=== PATIENT | female | born 1985 | race Caucasian/White ===

== ENCOUNTER → 2016-10-16 | Outpatient (CLI) | payer OTHER ==
[~2016-10-16] MED LIST: AZIT250T PO; CYCL10TA6 PO; DEXT1CAP9 PO; DIPH25CA65 PO; IBUP-103 PO; IBUP-1050 PO; IBUP-1428 PO; ONDA4TAB46 PO; OXYC-57 PO; PHEN1CAP5 PO; PRED50TA PO; PRVHFAIN INH; SULF800T23 PO; TPRSR/50 PO
[2016-10-16 17:44] LABS: BASO % 0.3 %; BASO ABS # 0.02 K/uL (0-0.2); COMPLETE YES; EOS % 4.6 %; HEMATOCRIT 43.8 % (37-47); IG% 0.1 %; LYMPH % 42.3 %; LYMPH ABS # 3.29 K/uL (1.2-3.4); MEAN CELL VOLUME 90.9 fL (80-100); MEAN CORPUSCULAR HEMOGLOBIN 30.5 pg (25-34); MEAN CORPUSCULAR HGB CONC 33.6 g/dl (32-36); MEAN PLATELET VOLUME 11.8 fL (7.4-10.4); MONO % 7.1 %; NEUT % 45.6 %; PLATELET COUNT 238 K/uL (130-400); RED BLOOD COUNT 4.82 M/uL (4.2-5.4); WHITE BLOOD COUNT 7.77 K/uL (4.8-10.8)
[2016-10-16 17:52] LABS: ALT/SGPT 26 U/L (12-78); AST/SGOT 14 U/L (15-37); BLOOD UREA NITROGEN 5 mg/dl (7-18); BUN/CREATININE RATIO 9.5 (10-20); CALCIUM 8.6 mg/dl (8.5-10.1); CARBON DIOXIDE 28 mmol/L (21-32); CHLORIDE 103 mmol/L (98-107); CREATININE 0.57 mg/dl (0.60-1.20); GLUCOSE 88 mg/dl (70-99); POTASSIUM 4.2 mmol/L (3.5-5.1); SODIUM 138 mmol/L (136-145)
[2016-10-16 18:03] LABS: ALB/GLOB RATIO 0.9 (0.9-2); ALKALINE PHOSPHATASE 123 U/L (45-117)
== END | disposition home or self-care (01) ==
LOC: C.LABBFT 14:45
PROVIDERS: ATTEND Internal Medicine
DX: J01.90 Acute sinusitis, unspecified (principal); I10 Essential (primary) hypertension

== ENCOUNTER 2016-10-21 16:21 | Emergency (ER) | payer OTHER ==
[~2016-10-21] VITALS: Ht 149.9 cm; Wt 86.0 kg
[~2016-10-21 16:21] MED LIST changes: -AZIT250T PO; -CYCL10TA6 PO; -DEXT1CAP9 PO; -DIPH25CA65 PO; -IBUP-103 PO; -IBUP-1428 PO; -OXYC-57 PO; -PRED50TA PO; -PRVHFAIN INH; -SULF800T23 PO; -TPRSR/50 PO
[2016-10-21 16:22] VITALS: Ht 149.9 cm; Wt 86.0 kg
[2016-10-21] MEDS ORDERED: SODIUM CHLORIDE 0.9% 1000ML 1,000 ML IV STA (16:32)
--- NOTE | 2016-10-21 16:37 | EMERGENCY ROOM VISIT NOTE ---
History Report prepared by Kyle: Elizabet Darling Under the Supervision of: Dr. Matias Lopez M.D. 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 The patient currently rates the pain as a 5/10 in severity. The patient states that with her abdominal pain she has had some light vaginal bleeding as well as the urge to urinate more frequently recently. She states that last night the pain intensified but it was slightly resolved when she was able to pass some gas but that there was still pain. She states that her menstrual period is late and hat she has a chance of but with a home test, tested negative for . The patient states that she has had two children in the past but that she has also has a history of a miscarriage. 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 Review of Systems See HPI for pertinent positives & negatives. A total of 10 systems reviewed and were otherwise negative. Past Medical & Surgical Medical Problems: (1) 37weeks 3 days (2) Active labor (3) Irregular contractions (4) Panic attack Surgical Problems: (1) S/P section Family History Cancer Diabetes mellitus Hypertension Seizures Social History Smoking Status: Current Every Day Smoker Alcohol Use: none Marital Status: Housing Status: lives with family Occupation Status: employed Current/Historical Medications Scheduled Ibuprofen (Advil), 200-600 MG PO Q4H Metoprolol Succinate (Metoprolol Succinate ER), 50 MG PO QAM Scheduled PRN Oxycodone/Acetaminophen 5MG/325MG (Percocet 5MG/325MG), 1-2 TAB PO Q4H PRN for Pain Allergies Coded Allergies: No Known Drug Allergy (Verified Allergy, Unknown, `, 06/25/16) Uncoded Allergies: metal (Adverse Reaction, Intermediate, RASH, 10/23/15) had skin irritation with shannon & also with some jewelry that contains nickel Physical Exam Vital Signs Date Time Temp Pulse Resp B/P Pulse Ox O2 Delivery O2 Flow Rate FiO2 10/21/16 18:52 37.3 84 16 142/99 99 10/21/16 18:50 84 16 142/99 99 Room Air 10/21/16 16:22 37.3 94 16 163/104 99 Room Air Physical Exam GENERAL: Patient is a healthy-appearing well-nourished HEAD: Normocephalic atraumatic EYES: Ocular movements intact pupils equal and react to light OROPHARYNX mucous membranes are moist no exudates present no erythema or edema present NECK: Supple no nuchal rigidity CHEST: Good equal expansion LUNGS: Clear and equal to auscultation CARDIAC: Normal S1 and S2 ABDOMEN: Soft nontender no guarding BACK: No CVA tenderness EXTREMITIES: No pain upon palpation normal muscle strength in all groups no clubbing cyanosis or edema NEURO: Patient is following commands is answering questions appropriately. Alert and oriented x3 Cranial Nerves 2-12 grossly intact Medical Decision & Procedures ER Provider Diagnostic Interpretation: US results as stated below per my review and radiologist interpretation: ULTRASOUND OF THE PELVIS CLINICAL HISTORY: Pelvic pain. COMPARISON STUDY: No priors. TECHNIQUE: Real-time, grayscale, and color flow sonography of the pelvis is performed both transabdominally and endovaginally. Images are reviewed in the transverse and longitudinal planes. FINDINGS: Uterus: The uterus is normal in size and echotexture, measuring 8.9 x 4.9 x 4.9 cm. Tiny nabothian cysts are noted in the cervix. Endometrium: The endometrium is normal in appearance, and the endometrial stripe is mildly thickened measuring up to 1.3 cm. Ovaries: The ovaries are normal in size and morphology. The right ovary measures 4.0 x 2.0 x 2.9 cm and the left ovary measures 3.8 x 2.8 x 2.6 cm. A 2.8 cm complex/hemorrhagic follicle is noted in the left ovary. Additional smaller follicles are noted in the right ovary. Normal Doppler waveforms are shown within both ovaries. Pelvis: There is trace and likely physiologic free fluid in the cul-de-sac. No concerning adnexal lesion is seen. IMPRESSION: 1. No acute sonographic abnormality is identified in the pelvis. 2. There is a 2.8 cm complex/hemorrhagic follicle identified in the left ovary. 3. The endometrial stripe is mildly thickened measuring up to 1.3 cm. This may be related to the patient's cycle. Clinical correlation will be required. 4. There is trace and likely physiologic fluid in the cul-de-sac. Electronically signed by: Marshall Luciano M.D. 10/21/2016 6:19 PM Dictated Date/Time: 10/21/2016 6:16 PM Laboratory Results 10/21/16 16:55 Red Blood Count 4.89, Mean Corpuscular Volume 88.1, Mean Corpuscular Hemoglobin 30.3, Mean Corpuscular Hemoglobin Concent 34.3, Mean Platelet Volume 10.8, Neutrophils (%) (Auto) 56.4, Lymphocytes (%) (Auto) 31.7, Monocytes (%) (Auto) 7.6, Eosinophils (%) (Auto) 3.8, Basophils (%) (Auto) 0.3, Neutrophils # (Auto) 6.62, Lymphocytes # (Auto) 3.71, Monocytes # (Auto) 0.89, Eosinophils # (Auto) 0.44, Basophils # (Auto) 0.04 10/21/16 16:55 Test 10/21/16 16:55 White Blood Count 11.72 K/uL (4.8-10.8) Red Blood Count 4.89 M/uL (4.2-5.4) Hemoglobin 14.8 g/dL (12.0-16.0) Hematocrit 43.1 % (37-47) Mean Corpuscular Volume 88.1 fL (80-100) Mean Corpuscular Hemoglobin 30.3 pg (25-34) Mean Corpuscular Hemoglobin Concent 34.3 g/dl (32-36) Platelet Count 243 K/uL (130-400) Mean Platelet Volume 10.8 fL (7.4-10.4) Neutrophils (%) (Auto) 56.4 % Lymphocytes (%) (Auto) 31.7 % Monocytes (%) (Auto) 7.6 % Eosinophils (%) (Auto) 3.8 % Basophils (%) (Auto) 0.3 % Neutrophils # (Auto) 6.62 K/uL (1.4-6.5) Lymphocytes # (Auto) 3.71 K/uL (1.2-3.4) Monocytes # (Auto) 0.89 K/uL (0.11-0.59) Eosinophils # (Auto) 0.44 K/uL (0-0.5) Basophils # (Auto) 0.04 K/uL (0-0.2) RDW Standard Deviation 43.4 fL (36.4-46.3) RDW Coefficient of Variation 13.5 % (11.5-14.5) Immature Granulocyte % (Auto) 0.2 % Immature Granulocyte # (Auto) 0.02 K/uL (0.00-0.02) Red Blood Cell Morphology Unremarkable Urine Color YELLOW Urine Appearance CLEAR (CLEAR) Urine pH 8.0 (4.5-7.5) Urine Specific [place] 1.013 (1.000-1.030) Urine Protein NEG (NEG) Urine Glucose (UA) NEG (NEG) Urine Ketones NEG (NEG) Urine Occult Blood NEG (NEG) Urine Nitrite NEG (NEG) Urine Bilirubin NEG (NEG) Urine Urobilinogen NEG (NEG) Urine Leukocyte Esterase NEG (NEG) Urine Test NEG (NEG) Anion Gap 6.0 mmol/L (3-11) Est Creatinine Clear Calc Drug Dose 124.4 ml/min Estimated GFR () 139.5 Estimated GFR (Non- 120.4 BUN/Creatinine Ratio 10.0 (10-20) Calcium Level 9.2 mg/dl (8.5-10.1) Total Bilirubin 0.2 mg/dl (0.2-1) Direct Bilirubin < 0.1 mg/dl (0-0.2) Aspartate Amino Transf (AST/SGOT) 16 U/L (15-37) Alanine Aminotransferase (ALT/SGPT) 26 U/L (12-78) Alkaline Phosphatase 128 U/L (45-117) Total Protein 7.8 gm/dl (6.4-8.2) Albumin 3.8 gm/dl (3.4-5.0) Lipase 148 U/L (73-393) Human Chorionic Gonadotropin, Qual NEG (NEG) Human Chorionic Gonadotropin, Quant < 1 mIU/mL Labs reviewed by ED physician. Medications Administered Medications (Trade) Dose Ordered Sig/Eulalia Route Start Time Stop Time Status Last Admin Dose Admin Sodium Chloride (Nss 1000ml) 1,000 ml @ 999 mls/hr Q1H1M STAT IV 10/21/16 16:32 10/21/16 17:32 DC 10/21/16 17:05 999 MLS/HR Oxycodone/ Acetaminophen (Percocet 5/ 325MG Home Pack) 1 homepack UD ONCE PO 10/21/16 18:45 10/21/16 18:46 DC 10/21/16 18:41 1 HOMEPACK ED Course 1630: Past medical records reviewed. The patient was evaluated in room B6. A complete history and physical examination was performed. 163: Ordered Sodium Chloride 1,000 ml @ 999 mls/hr IV 1836: Upon reexamination the patient is resting comfortably. I discussed results and treatment plan with the patient. She verbalizes agreement and understanding. The patient is ready for discharge. 1845: Ordered Oxycodone/ Acetaminophen 1 homepack PO. Medical Decision Differential diagnosis: Etiologies such as appendicitis, diverticulitis, PUD, biliary pathology, UTI, pancreatitis, obstruction, mesenteric ischemia, aortic pathology, infections, inflammatory bowel disease, renal colic, as well as others were entertained. This is a 31-year-old female who presents emergency department complaining of right lower quadrant pelvic pain that started abruptly last evening. The patient's story is consistent with ovarian cyst. There is an ovarian cyst present on the patient's ultrasound along with some free pelvic fluid. I did do believe the patient suffered from an ovarian cyst rupture. I will note her hemoglobin is stable and she does not have an elevation in her white blood count that would be consistent with acute appendicitis. In addition the patient is only tender in the right lower pelvic area. Serial abdominal examinations were performed on the patient emergency department and at no time did the patient exhibit right lower quadrant abdominal tenderness. I do believe the patient can be safely discharged home for follow-up with OB. Using shared medical decision-making with the patient we felt that the dangers of radiation from CAT scan were unwarranted. Patient was in agreement with the treatment plan. she was given Percocet for home use. Impression Primary Impression: Pelvic pain Additional Impression: Ovarian cyst Scribe Attestation The scribe's documentation has been prepared under my direction and personally reviewed by me in its entirety. I confirm that the note above accurately reflects all work, treatment, procedures, and medical decision making performed by me. Departure Information Dispostion Home / Self-Care Prescriptions Oxycodone/Acetaminophen 5MG/325MG (PERCOCET 5MG/325MG) Tab 1-2 TAB PO Q4H Y for Pain, #14 TAB Prov: Matias Lopez MD 10/21/16 Referrals Alejandro Strong M.D. (PCP) Forms HOME CARE DOCUMENTATION FORM, IMPORTANT VISIT INFORMATION Patient Instructions My [facility] Additional Instructions You received narcotic or benzodiazepene medication while in the emergency room today. Do not drive, operate heavy machinery, or drink alcohol under the influence of this medication. Take 600 mg Ibuprofen every 6 hours Take Percocet for breakthrough pain You have been examined and treated today on an emergency basis only. This is not a substitute for, or an effort to provide, complete comprehensive medical care. It is impossible to recognize and treat all injuries or illnesses in a single emergency department visit. It is therefore important that you follow up closely with Dr Strong. Call as soon as possible for an appointment. Thank you for your time and consideration. I look forward to speaking with you again soon. Please don't hesitate to call us if you have any questions. Problem Qualifiers Additional Impression: Ovarian cyst Laterality: left Qualified Codes: N83.202 - Unspecified ovarian cyst, left side
[2016-10-21 17:09] LABS: HEMATOCRIT 43.1 % (37-47); MEAN CELL VOLUME 88.1 fL (80-100); MEAN CORPUSCULAR HEMOGLOBIN 30.3 pg (25-34); MEAN CORPUSCULAR HGB CONC 34.3 g/dl (32-36); MEAN PLATELET VOLUME 10.8 fL (7.4-10.4); PLATELET COUNT 243 K/uL (130-400); RED BLOOD COUNT 4.89 M/uL (4.2-5.4); WHITE BLOOD COUNT 11.72 K/uL (4.8-10.8)
[2016-10-21 17:11] LABS: URINE APPEARANCE CLEAR (CLEAR); URINE BILIRUBIN NEG (NEG); URINE COLOR YELLOW; URINE NITRITE NEG (NEG); URINE SPECIFIC GRAVITY 1.013 (1.000-1.030); UROBILINOGEN NEG (NEG)
[2016-10-21 17:13] LABS: MANUAL MICROSCOPIC REQUIRED? NO; REVIEW REQ? NO
[2016-10-21 17:28] LABS: ALT/SGPT 26 U/L (12-78); AST/SGOT 16 U/L (15-37); BLOOD UREA NITROGEN 6 mg/dl (7-18); CALCIUM 9.2 mg/dl (8.5-10.1); CARBON DIOXIDE 30 mmol/L (21-32); CHLORIDE 106 mmol/L (98-107); CREATININE 0.63 mg/dl (0.60-1.20); GLUCOSE 127 mg/dl (70-99); SODIUM 142 mmol/L (136-145)
[2016-10-21 17:29] LABS: PREG INTERNAL NEGATIVE QC NEG CLEAR BACKGROUND; PREG INTERNAL POSITIVE QC POS CONTROL LINE
[2016-10-21 17:30] LABS: ALKALINE PHOSPHATASE 128 U/L (45-117)
[2016-10-21 17:51] LABS: BASO % 0.3 %; BASO ABS # 0.04 K/uL (0-0.2); COMPLETE YES; EOS % 3.8 %; IG% 0.2 %; LYMPH % 31.7 %; LYMPH ABS # 3.71 K/uL (1.2-3.4); MONO % 7.6 %; NEUT % 56.4 %
--- NOTE | 2016-10-21 18:20 | DIAGNOSTIC IMAGING REPORT ---
ULTRASOUND OF THE PELVIS CLINICAL HISTORY: Pelvic pain. COMPARISON STUDY: No priors. TECHNIQUE: Real-time, grayscale, and color flow sonography of the pelvis is performed both transabdominally and endovaginally. Images are reviewed in the transverse and longitudinal planes. FINDINGS: Uterus: The uterus is normal in size and echotexture, measuring 8.9 x 4.9 x 4.9 cm. Tiny nabothian cysts are noted in the cervix. Endometrium: The endometrium is normal in appearance, and the endometrial stripe is mildly thickened measuring up to 1.3 cm. Ovaries: The ovaries are normal in size and morphology. The right ovary measures 4.0 x 2.0 x 2.9 cm and the left ovary measures 3.8 x 2.8 x 2.6 cm. A 2.8 cm complex/hemorrhagic follicle is noted in the left ovary. Additional smaller follicles are noted in the right ovary. Normal Doppler waveforms are shown within both ovaries. Pelvis: There is trace and likely physiologic free fluid in the cul-de-sac. No concerning adnexal lesion is seen. IMPRESSION: 1. No acute sonographic abnormality is identified in the pelvis. 2. There is a 2.8 cm complex/hemorrhagic follicle identified in the left ovary. 3. The endometrial stripe is mildly thickened measuring up to 1.3 cm. This may be related to the patient's cycle. Clinical correlation will be required. 4. There is trace and likely physiologic fluid in the cul-de-sac. Electronically signed by: Marshall Luciano M.D. 10/21/2016 6:19 PM Dictated Date/Time: 10/21/2016 6:16 PM
[2016-10-21] MEDS ORDERED: OXYC-57 PO (18:34)
[2016-10-21] MEDS ORDERED: PERCOCET HOME PACK PO ONE (18:45)
[2016-10-21 18:52] VITALS: BP 142/99; PULSE 84; TEMP 37.3; O2SAT 99
[2017-01-06] MEDS ORDERED: TPRSR/50 PO (15:47)
== END 2016-10-21 18:53 | disposition home or self-care (01) ==
LOC: C.EDB 16:21
DX: R10.2 Pelvic and perineal pain (principal); N83.202 Unspecified ovarian cyst, left side; F17.200 Nicotine dependence, unspecified, uncomplicated; Z80.9 Family history of malignant neoplasm, unspecified; Z83.3 Family history of diabetes mellitus; Z82.49 Family history of ischemic heart disease and other diseases of the circulatory system; Z82.0 Family history of epilepsy and other diseases of the nervous system

== ENCOUNTER 2017-01-04 22:20 | Emergency (ER) | payer OTHER ==
[~2017-01-04] VITALS: Ht 149.9 cm; Wt 86.4 kg
[~2017-01-04 22:20] MED LIST changes: -ONDA4TAB46 PO; +OXYC-57 PO; -PHEN1CAP5 PO
[2017-01-04 22:23] VITALS: TEMP 36.8; Ht 149.9 cm; Wt 86.4 kg
[2017-01-04 23:00] LABS: URINE APPEARANCE CLEAR (CLEAR); URINE BILIRUBIN NEG (NEG); URINE COLOR YELLOW; URINE NITRITE NEG (NEG); URINE SPECIFIC GRAVITY 1.023 (1.000-1.030); UROBILINOGEN NEG (NEG); ZZUR CULT IF INDIC CLEAN CATCH NO
[2017-01-04 23:08] LABS: MANUAL MICROSCOPIC REQUIRED? NO; REVIEW REQ? NO
[2017-01-04 23:13] LABS: HEMATOCRIT 45.5 % (37-47); MEAN CELL VOLUME 91.7 fL (80-100); MEAN CORPUSCULAR HGB CONC 33.8 g/dl (32-36); MEAN PLATELET VOLUME 11.9 fL (7.4-10.4); PLATELET COUNT 248 K/uL (130-400); RED BLOOD COUNT 4.96 M/uL (4.2-5.4); WHITE BLOOD COUNT 12.96 K/uL (4.8-10.8)
[2017-01-04] MEDS ORDERED: OPTIRAY 320 IV PRN (23:30)
[2017-01-04 23:31] LABS: ALT/SGPT 27 U/L (12-78); AST/SGOT 18 U/L (15-37); BLOOD UREA NITROGEN 6 mg/dl (7-18); BUN/CREATININE RATIO 8.8 (10-20); CALCIUM 9.1 mg/dl (8.5-10.1); CARBON DIOXIDE 29 mmol/L (21-32); CHLORIDE 103 mmol/L (98-107); CREATININE 0.72 mg/dl (0.60-1.20); GLUCOSE 87 mg/dl (70-99); POTASSIUM 3.6 mmol/L (3.5-5.1); SODIUM 141 mmol/L (136-145)
[2017-01-04 23:34] LABS: ALKALINE PHOSPHATASE 137 U/L (45-117)
[2017-01-04 23:52] LABS: BASO % 0.3 %; BASO ABS # 0.04 K/uL (0-0.2); COMPLETE YES; EOS % 2.4 %; IG% 0.2 %; LYMPH % 44.8 %; LYMPH ABS # 5.81 K/uL (1.2-3.4); MONO % 4.6 %; NEUT % 47.7 %
[2017-01-05 00:58] VITALS: BP 133/77; PULSE 101; O2SAT 98
[2017-01-05] MEDS ORDERED: KETOROLAC TROMETHAMINE 30 MG/ML VIAL IV STA (01:02)
[2017-01-05] MEDS ORDERED: SULF800T23 PO (01:20)
--- NOTE | 2017-01-05 01:25 | EMERGENCY ROOM VISIT NOTE ---
History First contact with patient: 22:31 Chief Complaint: BACK PAIN Stated Complaint: BLADDER INFECTION, BAD LOWER BACK PAIN History of Present Illness The patient is a 31 year old female who presents to the Emergency Room with complaints of an approximate 2 day history of increased urinary frequency, backache, mild abdominal pain and pressure. She also reports mild nausea without vomiting. She reports that the pain is relatively constant. The patient believes that she may have a urinary tract infection. She has had urinary tract infections in the past. She also has a history of ovarian cysts, but does not feel that this pain is consistent with a cyst. She denies any prior history of abdominal surgeries. She denies any specific alleviating or aggravating factors for her discomfort. The patient reports that she did have some vaginal bleeding after intercourse 2 nights ago. Friend was not particularly painful. She denies . She rates her discomfort a 7 out of 10. Review of Systems HEENT: Denies dizziness, visual problems, hearing loss, tinnitus. Denies difficulty swallowing or oral lesions. PULMONARY: Denies cough, shortness of breath, sputum production or hemoptysis. CARDIOVASCULAR: Denies chest pain, palpitations, dyspnea on exertion, orthopnea or peripheral edema. GASTROINTESTINAL: Denies diarrhea, constipation, nausea, vomiting, or abdominal pain. GENITOURINARY: Denies dysuria, frequency, urgency or nocturia. NEUROLOGIC: Denies history of epilepsy, CVA, TIA or chronic headaches. MUSCULOSKELETAL: Denies history of joint tenderness/swelling. SKIN: Denies rashes or lesions. PSYCHIATRIC: Denies history of depression or mental illness. ENDOCRINE: Denies history of diabetes or thyroid disorders. Past Medical/Surgical History Medical Problems: (1) 37weeks 3 days (2) Active labor (3) Irregular contractions (4) Panic attack Surgical Problems: (1) S/P section Family History Cancer Diabetes mellitus Hypertension Seizures Social History Smoking Status: Current Every Day Smoker Alcohol Use: none Marital Status: Housing Status: lives with family Occupation Status: employed Current/Historical Medications Scheduled Metoprolol Succinate (Metoprolol Succinate ER), 50 MG PO QAM Sulfa/Trimethoprim (Bactrim Ds 800MG/160MG), 1 TAB PO BID Scheduled PRN Albuterol (Ventolin Hfa), 2 PUFFS INH UD PRN for SOB/Wheezing Allergies Coded Allergies: No Known Drug Allergy (Verified Allergy, Unknown, `, 06/25/16) Uncoded Allergies: metal (Adverse Reaction, Intermediate, RASH, 10/23/15) had skin irritation with shannon & also with some jewelry that contains nickel Physical Exam Vital Signs Date Time Temp Pulse Resp B/P (MAP) Pulse Ox O2 Delivery O2 Flow Rate FiO2 01/05/17 00:58 101 16 133/77 98 Room Air 01/05/17 00:00 88 18 163/110 97 Room Air 01/04/17 22:23 36.8 92 18 155/80 100 Room Air Physical Exam CONSTITUTIONAL: Obese female, alert and oriented X 3 with positive affect. Patient does not appear in any acute distress. HEENT: Normocephalic, atraumatic. Pupils equal, round and reactive. Ears and nares are clear. No scleral icterus or conjunctival injection/pallor. NECK: Full active range of motion without discomfort. No JVD or carotid bruits. RESPIRATORY: Clear to auscultation bilaterally with no wheezing, crackles, rhonchi or stridor. CARDIOVASCULAR: Regular rate and rhythm with no murmurs, rubs or gallops. GASTROINTESTINAL: Bowel sounds present in all quadrants. The patient has notable lower central abdominal tenderness to palpation. Negative Rovsing sign. Negative CVA tenderness. Negative McBurney's point tenderness. Negative psoas/obturator sign. Negative heel tap. No abdominal rigidity, guarding or rebound. No obvious hepatosplenomegaly. MUSCULOSKELETAL: Full range of motion of all joints without discomfort. Negative logroll. Negative straight leg raise. INTEGUMENTARY: No rash or other significant dermatologic conditions noted. HEMATOLOGIC: No ecchymosis or petechiae. NEUROLOGIC: No focal neurologic deficits noted. Medical Decision & Procedures ER Provider Diagnostic Interpretation: Pelvic and endovaginal ultrasound shows no evidence for ovarian torsion, adnexal mass or free fluid. The patient has a persistent left ovarian cyst or dominant follicle, measuring 2.7 x 2.4 x 2.7 cm. The endometrium measures 1.[address] of the abdomen and pelvis with IV contrast again shows a left ovarian 2.8 cm cyst/dominant follicle. The appendix appears normal. There is no evidence of acute inflammatory or obstructive process in the abdomen or pelvis to account for symptoms. Radiologist report is pending with the above reports per [employer]. Laboratory Results 01/04/17 22:55 Red Blood Count 4.96, Mean Corpuscular Volume 91.7, Mean Corpuscular Hemoglobin 31.0, Mean Corpuscular Hemoglobin Concent 33.8, Mean Platelet Volume 11.9, Neutrophils (%) (Auto) 47.7, Lymphocytes (%) (Auto) 44.8, Monocytes (%) (Auto) 4.6, Eosinophils (%) (Auto) 2.4, Basophils (%) (Auto) 0.3, Neutrophils # (Auto) 6.17, Lymphocytes # (Auto) 5.81, Monocytes # (Auto) 0.60, Eosinophils # (Auto) 0.31, Basophils # (Auto) 0.04 01/04/17 22:55 Test 01/04/17 22:46 01/04/17 22:55 Urine Color YELLOW Urine Appearance CLEAR (CLEAR) Urine pH 6.0 (4.5-7.5) Urine Specific [place] 1.023 (1.000-1.030) Urine Protein NEG (NEG) Urine Glucose (UA) NEG (NEG) Urine Ketones NEG (NEG) Urine Occult Blood NEG (NEG) Urine Nitrite NEG (NEG) Urine Bilirubin NEG (NEG) Urine Urobilinogen NEG (NEG) Urine Leukocyte Esterase NEG (NEG) Urine Test NEG (NEG) White Blood Count 12.96 K/uL (4.8-10.8) Red Blood Count 4.96 M/uL (4.2-5.4) Hemoglobin 15.4 g/dL (12.0-16.0) Hematocrit 45.5 % (37-47) Mean Corpuscular Volume 91.7 fL (80-100) Mean Corpuscular Hemoglobin 31.0 pg (25-34) Mean Corpuscular Hemoglobin Concent 33.8 g/dl (32-36) Platelet Count 248 K/uL (130-400) Mean Platelet Volume 11.9 fL (7.4-10.4) Neutrophils (%) (Auto) 47.7 % Lymphocytes (%) (Auto) 44.8 % Monocytes (%) (Auto) 4.6 % Eosinophils (%) (Auto) 2.4 % Basophils (%) (Auto) 0.3 % Neutrophils # (Auto) 6.17 K/uL (1.4-6.5) Lymphocytes # (Auto) 5.81 K/uL (1.2-3.4) Monocytes # (Auto) 0.60 K/uL (0.11-0.59) Eosinophils # (Auto) 0.31 K/uL (0-0.5) Basophils # (Auto) 0.04 K/uL (0-0.2) RDW Standard Deviation 45.9 fL (36.4-46.3) RDW Coefficient of Variation 13.7 % (11.5-14.5) Immature Granulocyte % (Auto) 0.2 % Immature Granulocyte # (Auto) 0.03 K/uL (0.00-0.02) Anion Gap 9.0 mmol/L (3-11) Est Creatinine Clear Calc Drug Dose 109.1 ml/min Estimated GFR () 130.2 Estimated GFR (Non- 112.4 BUN/Creatinine Ratio 8.8 (10-20) Calcium Level 9.1 mg/dl (8.5-10.1) Total Bilirubin 0.3 mg/dl (0.2-1) Direct Bilirubin < 0.1 mg/dl (0-0.2) Aspartate Amino Transf (AST/SGOT) 18 U/L (15-37) Alanine Aminotransferase (ALT/SGPT) 27 U/L (12-78) Alkaline Phosphatase 137 U/L (45-117) Total Creatine Kinase 133 U/L (26-192) Total Protein 8.7 gm/dl (6.4-8.2) Albumin 4.6 gm/dl (3.4-5.0) Lipase 136 U/L (73-393) The above labs were reviewed. Urine dip showed positive nitrites and proteinuria without evidence for leukocyte esterase or hematuria. Urinalysis however was completely normal. The patient has an elevated white count and bandemia without left shift. Electrolytes are normal. Alkaline phosphatase is mildly elevated with normal LFTs and lipase. Medications Administered Medications (Trade) Dose Ordered Sig/Eulalia Route Start Time Stop Time Status Last Admin Dose Admin Ketorolac Tromethamine (Toradol Inj) 30 mg NOW STAT IV 01/05/17 01:02 01/05/17 01:04 DC 01/05/17 01:09 30 MG ED Course Patient history and physical exam were performed. Nurse's notes were reviewed. Vital signs were reviewed and grossly normal. The patient is afebrile. She does not appear in any acute distress on exam. IV access was established, and labs were drawn. The patient refused any analgesics or antiemetics. Review of labs shows a urine dip with positive nitrites and proteinuria. However, the patient had no hematuria or leukocyte esterase. Urine was also negative. Further lab review shows normal LFTs and lipase except for mildly elevated alkaline phosphatase. CPK, electrolytes and creatinine are normal. Pelvic and transvaginal ultrasound shows a left ovarian cyst without evidence for torsion, adnexal mass or free fluid. It is relatively unchanged from the patient's recent ultrasound dated 10/21/16. CT of the abdomen and pelvis with IV contrast was also normal with the noted left ovarian 2.8 cm cyst/dominant follicle. The patient did receive Toradol 30 mg IVP after returning from CT. The patient was encouraged to follow-up with her COLLEGE COACH for further reevaluation and management. She was encouraged to alternate ibuprofen and Tylenol for baseline pain relief. She refused any prescription analgesics. Because she does have symptoms of UTI, I did elect to treat her with Bactrim DS twice a day 5 days. She was instructed to return to the emergency department for any significant worsening pain, vomiting, vaginal/rectal bleeding, fever or other concerning symptoms. The patient was happy with plan of care, and rated her discomfort a 3 out of 10 at the time of discharge. Medical Decision Patient presents to the emergency Department with primary complaint of increased urinary frequency, lower abdominal pain and back pain. Her urinalysis is not suggestive of UTI, and has no hematuria that is typical for a ureteral calculus. Additional lab work is not suggestive of hepatitis, cholecystitis or pancreatitis. Ultrasound and CT that show a left ovarian cyst that will need followed by her COLLEGE COACH. Ultrasound is not suggestive of ovarian torsion. Interstitial cystitis is certainly a possibility, but I suspect that the patient's discomfort is likely from the ovarian cyst. CT is not suggestive of diverticulitis, appendicitis or obstruction. Impression Primary Impression: Left ovarian cyst Additional Impressions: Lower abdominal pain Symptoms of urinary tract infection Departure Information Prescriptions Sulfa/Trimethoprim (Bactrim Ds 800MG/160MG) Tab 1 TAB PO BID for 4 Days, #8 TAB Prov: Chong Fraire PA 01/05/17 Referrals Alejandro Strong M.D. (PCP) Patient Instructions My [facility] Problem Qualifiers
[2017-01-05] MEDS ORDERED: SEPTRA DS HOME PACK 1 EA VIAL PO ONE (01:30)
--- NOTE | 2017-01-05 06:57 | DIAGNOSTIC IMAGING REPORT ---
PELVIC ULTRASOUND CLINICAL HISTORY: Lower abdominal and back pain. COMPARISON STUDY: Pelvic ultrasound October 21, 2016. TECHNIQUE: Transabdominal and transvaginal sonography of the pelvis was performed. FINDINGS: The uterus measures 8.4 x 4.3 x 4.7 cm. Endometrium measures 1.2 cm in thickness. The right ovary is normal, measuring 2.8 x 1.5 x 2.7 cm and the left ovary measures 3.8 x 3 x 3.8 cm. There is a 2.7 cm cystic lesion within the left ovary. There is no free fluid. Color flow is identified within each ovary. IMPRESSION: 1. No evidence of ovarian torsion. 2. 2.7 cm cyst or dominant follicle within left ovary. Electronically signed by: Elbert Cage M.D. 01/05/2017 6:56 AM Dictated Date/Time: 01/05/2017 6:54 AM
--- NOTE | 2017-01-05 07:13 | DIAGNOSTIC IMAGING REPORT ---
CT OF THE ABDOMEN AND PELVIS WITH CONTRAST CLINICAL HISTORY: Lower abdominal and back pain. Bladder infection. COMPARISON STUDY: Pelvic ultrasound October 21, 2016 and January 04, 2017. TECHNIQUE: Following IV administration of 105 mL of [id number]-320, axial images of the abdomen and pelvis were obtained from the lung bases to the proximal femurs. Images were reviewed in the axial, sagittal, and coronal planes. IV contrast was administered without complication. CT DOSE: 633.38 mGy.cm FINDINGS: There is suspected fatty infiltration of the liver. The spleen, adrenal glands, kidneys and pancreas are normal. There is no biliary or pancreatic ductal dilatation. There is no peripancreatic infiltration. No hydronephrosis is present. There is a 2.8 cm left ovarian cyst or dominant follicle as shown on prior pelvic ultrasound. There is no evidence for a bowel obstruction. The appendix is normal. There is no ascites. There is no lymphadenopathy. Skeletal structures are unremarkable. IMPRESSION: 1. No acute process within the abdomen or pelvis. Normal appendix. 2. Suspected fatty liver. 3. 2.8 cm cyst or dominant follicle within the left ovary. Electronically signed by: Elbert Cage M.D. 01/05/2017 7:12 AM Dictated Date/Time: 01/05/2017 7:08 AM
[2017-01-06] MEDS ORDERED: PRED50TA PO (22:03)
[2017-01-06] MEDS ORDERED: DIPH25CA65 PO (22:16)
[2017-01-06] MEDS ORDERED: PRVHFAIN INH (22:57)
[2017-06-11] MEDS ORDERED: TPRSR/50 PO (15:47)
[2017-06-11] MEDS ORDERED: IBUP-103 PO (17:35)
== END 2017-01-05 01:25 | disposition home or self-care (01) ==
LOC: C.EDB 22:21 → C.EDA 01-05 01:25
DX: N83.202 Unspecified ovarian cyst, left side (principal); R10.30 Lower abdominal pain, unspecified; R35.0 Frequency of micturition; M54.9 Dorsalgia, unspecified; R11.0 Nausea; F17.200 Nicotine dependence, unspecified, uncomplicated; Z83.3 Family history of diabetes mellitus; Z82.49 Family history of ischemic heart disease and other diseases of the circulatory system; Z82.0 Family history of epilepsy and other diseases of the nervous system

== ENCOUNTER 2017-01-06 21:42 | Emergency (ER) | payer OTHER ==
[~2017-01-06] VITALS: Ht 149.9 cm; Wt 86.0 kg
[~2017-01-06 21:42] MED LIST changes: -IBUP-1050 PO; -OXYC-57 PO; +SULF800T23 PO
[2017-01-06 21:46] VITALS: BP 140/77; PULSE 93; TEMP 36.7; Ht 149.9 cm; Wt 86.0 kg
[2017-01-06 21:50] VITALS: O2SAT 99
--- NOTE | 2017-01-06 21:56 | EMERGENCY ROOM VISIT NOTE ---
History Report prepared by Kyle: Kaleb Bello Under the Supervision of: Nirav YanezO. First contact with patient: 21:48 Chief Complaint: ALLERGIC REACTION Stated Complaint: THINK ALLERGIC REACTION TO MEDS, HIVES RASH History of Present Illness The patient is a 31 year old female who presents to the Emergency Room with complaints of an allergic reaction that began last night. She states that she noticed hives on her bilateral arms at this time. It has now worsened and the rash is spreading onto her face. She is also experience chills and diaphoresis. She states that she was placed onto a Sulfa antibiotic two days ago for a possible bladder infection. She stopped taking her medication this morning. She states that she took 1 Benadryl PO 6 hours ago. She states that the rash is itchy. She denies any abnormal urinary symptoms or shortness of breath. Source of History: patient Onset: last night Position: arm (bilateral), other (Face) Symptom Intensity: mild Quality: other (Rash) Timing: worsening Associated Symptoms: No SOB, No urinary symptoms Note: Her rash is itchy. Review of Systems See HPI for pertinent positives and negatives. A total of ten systems were reviewed and were otherwise negative. Past Medical & Surgical Medical Problems: (1) 37weeks 3 days (2) Active labor (3) Irregular contractions (4) Panic attack Surgical Problems: (1) S/P section Family History Cancer Diabetes mellitus Hypertension Seizures Social History Smoking Status: Current Every Day Smoker Alcohol Use: none Marital Status: Housing Status: lives with family Occupation Status: employed Current/Historical Medications Scheduled Metoprolol Succinate (Metoprolol Succinate ER), 50 MG PO QAM Sulfa/Trimethoprim (Bactrim Ds 800MG/160MG), 1 TAB PO BID Scheduled PRN Albuterol (Ventolin Hfa), 2 PUFFS INH UD PRN for SOB/Wheezing Allergies Coded Allergies: Sulfa Antibiotics (Verified Allergy, Unknown, rash, 01/06/17) Uncoded Allergies: metal (Adverse Reaction, Intermediate, RASH, 10/23/15) had skin irritation with shannon & also with some jewelry that contains nickel Physical Exam Vital Signs Date Time Temp Pulse Resp B/P (MAP) Pulse Ox O2 Delivery O2 Flow Rate FiO2 01/06/17 21:50 99 Room Air 01/06/17 21:46 36.7 93 16 140/77 99 Room Air Physical Exam GENERAL: Awake, alert, well-appearing, in no distress HENT: Normocephalic, atraumatic. Oropharynx unremarkable. EYES: Normal conjunctiva. Sclera non-icteric. NECK: Supple. No nuchal rigidity. FROM. No JVD. RESPIRATORY: Clear to auscultation. CARDIAC: Regular rate, normal rhythm. Extremities warm and well perfused. Pulses equal. ABDOMEN: Soft, non-distended. No tenderness to palpation. No rebound or guarding. No masses. RECTAL: Deferred. MUSCULOSKELETAL: Chest examination reveals no tenderness. The back is symmetrical on inspection without obvious abnormality. There is no CVA tenderness to palpation. No joint edema. LOWER EXTREMITIES: Calves are equal size bilaterally and non-tender. No edema. No discoloration. NEURO: Normal sensorium. No sensory or motor deficits noted. SKIN: There is a diffuse macular mild hive-like rash. Medical Decision & Procedures ED Course 2147: The patient was evaluated in room B10. A complete history and physical exam was performed. 2154: Ordered Benadryl 25 mg PO, Pepcid 20 mg PO, Prednisone 50 mg PO 2199: I reevaluated the patient. Discussed results and discharge instructions: She verbalized understanding and agreement. The patient is ready for discharge. Medical Decision Differential diagnoses include but are not limited to; allergic reaction, medication reaction, urticaria, do not suspect Padron-Russell syndrome. Medication Reconciliation: I attest that I have personally reviewed the patient' s current medication list. Blood pressure screening: Patient was found to have normal blood pressure on screening and does not require follow-up. She was placed on Bactrim I suspect that this is a reaction to sulfa. Patient has no signs of anaphylactic shock at this time. Patient was treated with antihistamines as well as steroids. Patient's in no distress. Patient has stopped taking the sulfa medication. Impression Primary Impression: Allergic reaction caused by a drug Scribe Attestation The scribe's documentation has been prepared under my direction and personally reviewed by me in its entirety. I confirm that the note above accurately reflects all work, treatment, procedures, and medical decision making performed by me. Departure Information Dispostion Home / Self-Care Prescriptions Prednisone (Prednisone) 50 Mg Tab 50 MG PO DAILY for 4 Days, #4 TAB Prov: Rudy, Nam M., DO 01/06/17 Referrals Alejandro Strong M.D. (PCP) Forms HOME CARE DOCUMENTATION FORM, IMPORTANT VISIT INFORMATION Patient Instructions ED Allergic Reaction General Other, My [facility] Additional Instructions Stop taking Bactrim. Continue taking Benadryl 25 mg every 6 hours as well as Pepcid 20 mg twice daily and prednisone as prescribed.
[2017-01-06] MEDS ORDERED: FAMOTIDINE 20 MG TAB PO ONE (22:00)
[2017-01-06] MEDS ORDERED: PRED50TA PO (22:03)
[2017-01-06] MEDS ORDERED: DIPH25CA65 PO (22:16)
[2017-01-06] MEDS ORDERED: PRVHFAIN INH (22:57)
[2017-06-11] MEDS ORDERED: TPRSR/50 PO (15:47)
[2017-06-11] MEDS ORDERED: IBUP-103 PO (17:35)
== END 2017-01-06 22:16 | disposition home or self-care (01) ==
LOC: C.EDB 21:42
DX: T50.905A Adverse effect of unspecified drugs, medicaments and biological substances, initial encounter (principal); F17.200 Nicotine dependence, unspecified, uncomplicated; Z88.2 Allergy status to sulfonamides; Z91.09 Other allergy status, other than to drugs and biological substances; Z80.9 Family history of malignant neoplasm, unspecified; Z83.3 Family history of diabetes mellitus; Z82.49 Family history of ischemic heart disease and other diseases of the circulatory system; Z82.0 Family history of epilepsy and other diseases of the nervous system

== ENCOUNTER 2017-02-21 21:26 | Emergency (ER) | payer OTHER ==
[~2017-02-21] VITALS: Ht 149.9 cm; Wt 82.6 kg
[~2017-02-21 21:26] MED LIST changes: +DIPH25CA65 PO; +PRVHFAIN INH; -SULF800T23 PO; +TPRSR/50 PO
[2017-02-21 21:31] VITALS: TEMP 37.2; Ht 149.9 cm; Wt 82.6 kg
--- NOTE | 2017-02-21 21:45 | EMERGENCY ROOM VISIT NOTE ---
History Report prepared by Kyle: Joann Prajapati Under the Supervision of: Nirav YanezO. First contact with patient: 21:33 Chief Complaint: LEG PAIN,LEG INJURY Stated Complaint: LOWER PART OF R ANKLE HURTS/PAIN IN CALF History of Present Illness The patient is a 31 year old female who presents to the Emergency Room with complaints of persistent right ankle pain that began prior to arrival. She currently rates her discomfort as a 5/10 in severity. The patient states that she was walking at work this evening when he right ankle began cracking and popping. She states that her pain initially was a 7/10 in severity. The patient states that she went home and rested, but her pain persisted. She denies any obvious injury. The patient note pain up into her right calf. She notes that movement worsens her pain. The patient denies any active medical problems. Source of History: patient Onset: prior to arrival Position: ankle (right) Symptom Intensity: 5/10 Timing: other (persistent) Modifying Factors (Worsening): movement Note: Associated Symptoms: right calf pain Review of Systems See HPI for pertinent positives & negatives. A total of 6 systems reviewed and were otherwise negative. Past Medical & Surgical Medical Problems: (1) 37weeks 3 days (2) Active labor (3) Irregular contractions (4) Panic attack Surgical Problems: (1) S/P section Family History Cancer Diabetes mellitus Hypertension Seizures Social History Smoking Status: Current Every Day Smoker Alcohol Use: none Marital Status: Housing Status: lives with family Occupation Status: employed Current/Historical Medications Scheduled Metoprolol Succinate (Metoprolol Succinate ER), 50 MG PO QAM Scheduled PRN Albuterol (Ventolin Hfa), 2 PUFFS INH UD PRN for SOB/Wheezing Cyclobenzaprine Hcl (Flexeril), 10 MG PO TID PRN for Muscle Spasms Diphenhydramine Hcl (Benadryl Allergy), 1 CAP PO Q4 PRN for ALLERGIC REACTION Ibuprofen (Motrin), 800 MG PO Q8H PRN for Pain Allergies Coded Allergies: Sulfamethoxazole w/Trimethoprim (Unverified Allergy, Severe, HIVES, ) Sulfa Antibiotics (Verified Allergy, Unknown, rash, 02/21/17) Uncoded Allergies: metal (Adverse Reaction, Intermediate, RASH, 3/26/16) had skin irritation with shannon & also with some jewelry that contains nickel Physical Exam Vital Signs Date Time Temp Pulse Resp B/P (MAP) Pulse Ox O2 Delivery O2 Flow Rate FiO2 02/21/17 21:31 37.2 96 16 144/86 98 Room Air Physical Exam GENERAL: Awake, alert, well-appearing, in no distress RIGHT ANKLE: No significant calf swelling, mild tenderness in the gastrocnemius muscle. Tender at the Achilles, pain with compression of gastrocnemius muscle. Ankle nontender, neurovascularly intact distally. NEURO: Normal sensorium. No sensory or motor deficits noted. SKIN: No rash or jaundice noted. Medical Decision & Procedures ER Provider Diagnostic Interpretation: X-ray: Per my interpretation, radiologist review. RIGHT ANKLE MIN 3 VIEWS ROUTINE CLINICAL HISTORY: Right ankle pain. No known trauma. COMPARISON: Right ankle radiographs December 01, 2015. FINDINGS: Alignment of the right ankle is anatomic. Talar dome is intact. No fracture or osseous lesion is identified. IMPRESSION: Unremarkable right ankle radiographs. Electronically signed by: Elbert Cage M.D. 02/21/2017 10:18 PM Dictated Date/Time: 02/21/2017 10:17 PM ED Course 2133: The patient was evaluated in room A10. A complete history and physical exam was performed. 2236: I reevaluated the patient and she is resting comfortably. I discussed the exam findings with her and I discussed the treatment plan. She verbalized complete understanding and agreement. She is ready to go home. Patient's exam is suggestive of Achilles tendinitis or sprain. Patient's Is slightly tender but not swollen has no palpable cords there is no significant history or risk factor suggestive of this being a DVT. Patient is on her feet for prolonged period at work I suspect due to the tenderness at the Achilles that this is an Achilles tendinitis and will be treated as such. Medical Decision Differential diagnoses include but are not limited to; sprain, strain, contusion , Achilles tendonitis Medication Reconcilliation Current Medication List: was personally reviewed by me Blood Pressure Screening Patient's blood pressure: Elevated blood pressure Blood pressure disposition: Elevated BP felt to be situational (due to pain) Impression Primary Impression: Right Achilles tendinitis Scribe Attestation The scribe's documentation has been prepared under my direction and personally reviewed by me in its entirety. I confirm that the note above accurately reflects all work, treatment, procedures, and medical decision making performed by me. Departure Information Dispostion Home / Self-Care Prescriptions Cyclobenzaprine Hcl (FLEXERIL) 10 Mg Tab 10 MG PO TID Y for Muscle Spasms, #21 TAB Prov: Nam Olivo, DO 02/21/17 Ibuprofen (Motrin) 800 Mg Tab 800 MG PO Q8H Y for Pain for 5 Days, #15 TAB Prov: Nam Olivo, DO 02/21/17 Referrals No Doctor, Assigned (PCP) Forms HOME CARE DOCUMENTATION FORM, IMPORTANT VISIT INFORMATION Patient Instructions Achilles Tendonitis, My [facility]
--- NOTE | 2017-02-21 22:19 | DIAGNOSTIC IMAGING REPORT ---
RIGHT ANKLE MIN 3 VIEWS ROUTINE CLINICAL HISTORY: Right ankle pain. No known trauma. COMPARISON: Right ankle radiographs December 01, 2015. FINDINGS: Alignment of the right ankle is anatomic. Talar dome is intact. No fracture or osseous lesion is identified. IMPRESSION: Unremarkable right ankle radiographs. Electronically signed by: Elbert Cage M.D. 02/21/2017 10:18 PM Dictated Date/Time: 02/21/2017 10:17 PM
[2017-02-21] MEDS ORDERED: IBUP-1428 PO (22:42)
[2017-02-21] MEDS ORDERED: CYCL10TA6 PO (22:42)
[2017-02-21 22:58] VITALS: BP 143/83; PULSE 73; O2SAT 98
== END 2017-02-21 22:49 | disposition home or self-care (01) ==
LOC: C.EDB 21:30 → C.EDA 22:49
DX: M76.61 Achilles tendinitis, right leg (principal); F17.200 Nicotine dependence, unspecified, uncomplicated; Z83.3 Family history of diabetes mellitus; Z82.49 Family history of ischemic heart disease and other diseases of the circulatory system; Z82.0 Family history of epilepsy and other diseases of the nervous system

== ENCOUNTER 2017-02-28 17:12 | Emergency (ER) | payer OTHER ==
[~2017-02-28] VITALS: Ht 149.9 cm; Wt 83.5 kg
[~2017-02-28 17:12] MED LIST changes: +CYCL10TA6 PO
[2017-02-28 17:14] VITALS: Ht 149.9 cm; Wt 83.5 kg
[2017-02-28] MEDS ORDERED: CYCL10TA6 PO (17:34)
[2017-02-28] MEDS ORDERED: IBUP-103 PO (17:35)
[2017-02-28 17:55] VITALS: BP 145/87; PULSE 81; TEMP 36.9; O2SAT 100
--- NOTE | 2017-02-28 19:26 | EMERGENCY ROOM VISIT NOTE ---
History First contact with patient: 17:17 Chief Complaint: FOOT PAIN Stated Complaint: BAD PAIN IN FOOT/ANKLE History of Present Illness The patient is a 31 year old female who presents to the Emergency Room with complaints of continued right ankle pain for the past few weeks. The patient was seen and evaluated at this facility about one week ago with this complaint. She had x-rays at that time which were negative. The patient was placed in an Star wrap and given instructions on conservative management. 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 The patient has not had new injury or trauma. She rates her discomfort an 8/10 but does worsen with ambulation. She has been taking Advil with only minimal improvement of symptoms. Review of Systems More than 10 systems were reviewed and otherwise negative with the exception of history of present illness. Past Medical/Surgical History Medical Problems: (1) 37weeks 3 days (2) Active labor (3) Irregular contractions (4) Panic attack Surgical Problems: (1) S/P section Family History Cancer Diabetes mellitus Hypertension Seizures Social History Smoking Status: Current Every Day Smoker Alcohol Use: none Marital Status: Housing Status: lives with family Occupation Status: employed Current/Historical Medications Scheduled Metoprolol Succinate (Metoprolol Succinate ER), 50 MG PO QAM Scheduled PRN Albuterol (Ventolin Hfa), 2 PUFFS INH UD PRN for SOB/Wheezing Cyclobenzaprine Hcl (Flexeril), 10 MG PO TID PRN for Muscle Spasms Ibuprofen Tab (Advil), 200 MG PO DIRECTED PRN for Pain Physical Exam Vital Signs Date Time Temp Pulse Resp B/P (MAP) Pulse Ox O2 Delivery O2 Flow Rate FiO2 02/28/17 17:55 36.9 81 18 145/87 100 02/28/17 17:54 81 18 145/87 100 Room Air 02/28/17 17:14 36.9 85 18 169/92 100 Room Air Pain Rating (0-10): 4.0 Physical Exam VITALS: Vitals are noted on the nurse's note and reviewed by myself. Vital signs stable. GENERAL: Well-developed, well-nourished, white female, who is in no acute distress and resting comfortably. Patient is cooperative with the examination. HEART: Regular rate and rhythm without murmurs gallops or rubs. LUNGS: Clear to auscultation bilaterally without wheezes, rales or rhonchi. No retractions or accessory muscle use. MUSCULOSKELETAL: Mild tenderness appreciated around the lateral aspect of the right ankle. There is no significant edema or ecchymosis. There is tenderness throughout the distal aspect of the Achilles tendon into the insertion. The patient is able to plantar and dorsiflex against resistance. No metatarsal tenderness. Negative Homans sign. No palpable cord. NEURO: Patient was alert and oriented to person place and time. CN II through XII grossly intact. Medical Decision & Procedures ED Course Physical exam and history were performed. Nursing notes, EMR, and Medication List were personally reviewed. Patient appears to have ongoing pain in her right ankle. She does not have a new injury or trauma and did have x-rays performed one week ago. The patient I elected to avoid repeat imaging at this time. I clinically suspect that her symptoms may be related to a sprain or strain. She also could certainly be experiencing persistent Achilles tendinitis. The patient will be given a gel ankle splint and crutches. As her symptoms have been ongoing for more than 1 week I recommended that she follow with orthopedics. I also strongly advised that she try to stay off her foot, as she has been walking on it all week. This is likely contributing to the persistence of symptoms. The patient is to continue [id number] analgesics. She was otherwise invited back to the ER with any new, worsening, or concerning symptoms. The chart was completed utilizing [employer] Speech Voice Recognition Software. Grammatical errors, random word insertions, pronoun errors, and incomplete sentences are an occasional consequence of this system due to software limitations, ambient noise, and hardware issues. Any formal questions or concerns about the content, text, or information contained within the body of this dictation should be directly addressed to the provider for clarification. . Medical Decision Differential diagnosis includes, but is not limited to: Sprain, strain, fracture , dislocation, subluxation, contusion, tendinitis, and others Impression Primary Impression: Pain in right ankle Departure Information Dispostion Home / Self-Care Condition GOOD Referrals Hiren Collazo D.O. Forms HOME CARE DOCUMENTATION FORM, IMPORTANT VISIT INFORMATION Patient Instructions My [facility] Additional Instructions You were seen and evaluated today on an emergency basis only. This is not a substitute for, or an effort to provide, complete comprehensive medical care. It is not possible to recognize and treat all injuries or illnesses in a single emergency department visit. For this reason it is recommended that you followup with [facility], Dr. Collazo's office, for ongoing care and evaluation. For baseline pain relief you may alternate ibuprofen and acetaminophen every 4 hours for pain control. Take 600 mg ibuprofen (Advil) and then 4 hours later take 1000 mg acetaminophen (Tylenol). Do not take more than 3000 mg acetaminophen in a single day. Wear your gel ankle splint and use your crutches for additional relief of symptoms. Rest, ice, and elevate your foot and ankle for additional relief of symptoms. You are welcome to return to the emergency department anytime with new, worsening, or concerning symptoms.
== END 2017-02-28 17:55 | disposition home or self-care (01) ==
LOC: C.EDB 17:13 → C.EDD 17:55
DX: M25.571 Pain in right ankle and joints of right foot (principal)

== ENCOUNTER 2017-06-11 18:18 | Emergency (ER) | payer OTHER ==
[~2017-06-11] VITALS: Ht 149.9 cm; Wt 79.8 kg
[~2017-06-11 18:18] MED LIST changes: -DIPH25CA65 PO; +IBUP-103 PO
[2017-06-11 18:28] VITALS: Ht 149.9 cm; Wt 79.8 kg
[2017-06-11] MEDS ORDERED: KETOROLAC TROMETHAMINE 30 MG/ML VIAL IV STA (19:14)
[2017-06-11] MEDS ORDERED: ONDANSETRON INJ 2 MG/ML 2 ML VIAL IV STA (19:14)
[2017-06-11] MEDS ORDERED: SODIUM CHLORIDE 0.9% 500ML 500 ML IV STA (19:14)
[2017-06-11 19:25] LABS: BASO % 0.2 %; BASO ABS # 0.03 K/uL (0-0.2); COMPLETE YES; EOS % 0.6 %; HEMATOCRIT 42.7 % (37-47); IG% 0.3 %; LYMPH ABS # 1.87 K/uL (1.2-3.4); MEAN CELL VOLUME 92.8 fL (80-100); MEAN CORPUSCULAR HEMOGLOBIN 31.1 pg (25-34); MEAN CORPUSCULAR HGB CONC 33.5 g/dl (32-36); MEAN PLATELET VOLUME 11.2 fL (7.4-10.4); MONO % 12.3 %; NEUT % 73.6 %; PLATELET COUNT 175 K/uL (130-400); WHITE BLOOD COUNT 14.42 K/uL (4.8-10.8)
[2017-06-11] MEDS ORDERED: DEXT1CAP9 PO (19:29)
[2017-06-11 19:43] LABS: URINE APPEARANCE CLOUDY (CLEAR); URINE BILIRUBIN NEG (NEG); URINE COLOR YELLOW; URINE EPITHELIAL CELL AUTO >30 /lpf (0-5); URINE NITRITE NEG (NEG); URINE PH 6.5 (4.5-7.5); UROBILINOGEN NEG (NEG); ZZUR CULT IF INDIC CLEAN CATCH YES
[2017-06-11 19:46] LABS: MANUAL MICROSCOPIC REQUIRED? NO; REVIEW REQ? NO
[2017-06-11 19:47] LABS: ALB/GLOB RATIO 0.9 (0.9-2); BUN/CREATININE RATIO 11.4 (10-20); CALCIUM 8.7 mg/dl (8.5-10.1); CREATININE 0.62 mg/dl (0.60-1.20); POTASSIUM 4.4 mmol/L (3.5-5.1)
--- NOTE | 2017-06-11 20:10 | DIAGNOSTIC IMAGING REPORT ---
CHEST ONE VIEW PORTABLE CLINICAL HISTORY: Cough and fever. COMPARISON STUDY: Chest radiograph June 25, 2016. FINDINGS: Lung volumes are slightly diminished. No pneumothorax or pleural effusion is present. There is no consolidation to suggest pneumonia. Cardiomediastinal silhouette is stable. Slight asymmetric right suprahilar opacity is noted. IMPRESSION: Mild asymmetric right suprahilar opacity. This is likely due to summation artifact although a small area of pneumonia could appear similar. Electronically signed by: Elbert Cage M.D. 06/11/2017 8:08 PM Dictated Date/Time: 06/11/2017 8:07 PM
[2017-06-11] MEDS ORDERED: AZITHROMYCIN 250 MG TAB PO STA (20:29)
[2017-06-11] MEDS ORDERED: AZIT250T PO (20:34)
--- NOTE | 2017-06-11 20:36 | EMERGENCY ROOM VISIT NOTE ---
History First contact with patient: 19:04 Chief Complaint: ILLNESS Stated Complaint: VERY SICK History of Present Illness The patient is a 32 year old female who presents to the Emergency Room with complaints of flulike symptoms. The patient states that she has had body aches , nausea and feeling feverish since last night. She has had a headache for the past few hours. She reports she has had a cough for the past 2 weeks which has become productive of brownish phlegm. She denies any sore throat, earaches, neck stiffness, abdominal pain, vomiting or urinary symptoms. She has had a decreased appetite. She denies any tick bites or possible exposures to ticks. She's been taking Tylenol and DayQuil without relief. She reports that both of her children have recently been ill with upper respiratory symptoms. Review of Systems A complete 10 point review of systems was reviewed with the patient with pertinent positives and negatives as per history of present illness. All else were negative. Past Medical/Surgical History Medical Problems: (1) 37weeks 3 days (2) Active labor (3) Irregular contractions (4) Panic attack Surgical Problems: (1) S/P section Family History Cancer Diabetes mellitus Hypertension Seizures Social History Smoking Status: Current Every Day Smoker Alcohol Use: none Marital Status: Housing Status: lives with family Occupation Status: employed Current/Historical Medications Scheduled Azithromycin (Zithromax), 250 MG PO DAILY Metoprolol Succinate (Metoprolol Succinate ER), 50 MG PO QAM Scheduled PRN Dextromethorphan-Phenylephrine (Vicks Dayquil Cold & Flu), 2 CAP PO UD PRN for Cold/Flu Symptoms Ibuprofen Tab (Advil), 400 MG PO Q4H PRN for Pain Physical Exam Vital Signs Date Time Temp Pulse Resp B/P (MAP) Pulse Ox O2 Delivery O2 Flow Rate FiO2 06/11/17 21:19 37.0 85 18 132/82 97 06/11/17 18:28 37.4 86 18 125/83 97 Room Air Physical Exam VITALS: Vitals are noted on the nurse's note and reviewed by myself. Vital signs stable. GENERAL: This is a 32-year-old female, in no acute distress, nondiaphoretic, well-developed well-nourished. SKIN: The skin was without rashes. EARS: External auditory canals clear, tympanic membranes pearly pemberton without erythema or effusion bilaterally. EYES: Pupils equal round and reactive to light and accommodation. NOSE: Patent, turbinates without inflammation or discharge. MOUTH: Mucous membranes moist. Tonsils are not enlarged. Pharynx without erythema or exudate. NECK: Supple without nuchal rigidity. No lymphadenopathy. No meningismus. HEART: Regular rate and rhythm without murmurs gallops or rubs. LUNGS: Clear to auscultation bilaterally without wheezes, rales or rhonchi. No retractions or accessory muscle use. NEURO: Patient was alert and oriented to person place and time. Medical Decision & Procedures ER Provider Diagnostic Interpretation: CHEST ONE VIEW PORTABLE CLINICAL HISTORY: Cough and fever. COMPARISON STUDY: Chest radiograph June 25, 2016. FINDINGS: Lung volumes are slightly diminished. No pneumothorax or pleural effusion is present. There is no consolidation to suggest pneumonia. Cardiomediastinal silhouette is stable. Slight asymmetric right suprahilar opacity is noted. IMPRESSION: Mild asymmetric right suprahilar opacity. This is likely due to summation artifact although a small area of pneumonia could appear similar. Laboratory Results 06/11/17 19:17 Red Blood Count 4.60, Mean Corpuscular Volume 92.8, Mean Corpuscular Hemoglobin 31.1, Mean Corpuscular Hemoglobin Concent 33.5, Mean Platelet Volume 11.2, Neutrophils (%) (Auto) 73.6, Lymphocytes (%) (Auto) 13.0, Monocytes (%) (Auto) 12.3, Eosinophils (%) (Auto) 0.6, Basophils (%) (Auto) 0.2, Neutrophils # (Auto ) 10.61, Lymphocytes # (Auto) 1.87, Monocytes # (Auto) 1.77, Eosinophils # (Auto ) 0.09, Basophils # (Auto) 0.03 06/11/17 19:17 Test 06/11/17 19:17 06/11/17 19:30 White Blood Count 14.42 K/uL (4.8-10.8) Red Blood Count 4.60 M/uL (4.2-5.4) Hemoglobin 14.3 g/dL (12.0-16.0) Hematocrit 42.7 % (37-47) Mean Corpuscular Volume 92.8 fL (80-100) Mean Corpuscular Hemoglobin 31.1 pg (25-34) Mean Corpuscular Hemoglobin Concent 33.5 g/dl (32-36) Platelet Count 175 K/uL (130-400) Mean Platelet Volume 11.2 fL (7.4-10.4) Neutrophils (%) (Auto) 73.6 % Lymphocytes (%) (Auto) 13.0 % Monocytes (%) (Auto) 12.3 % Eosinophils (%) (Auto) 0.6 % Basophils (%) (Auto) 0.2 % Neutrophils # (Auto) 10.61 K/uL (1.4-6.5) Lymphocytes # (Auto) 1.87 K/uL (1.2-3.4) Monocytes # (Auto) 1.77 K/uL (0.11-0.59) Eosinophils # (Auto) 0.09 K/uL (0-0.5) Basophils # (Auto) 0.03 K/uL (0-0.2) RDW Standard Deviation 48.5 fL (36.4-46.3) RDW Coefficient of Variation 14.4 % (11.5-14.5) Immature Granulocyte % (Auto) 0.3 % Immature Granulocyte # (Auto) 0.05 K/uL (0.00-0.02) Anion Gap 7.0 mmol/L (3-11) Est Creatinine Clear Calc Drug Dose 120.1 ml/min Estimated GFR () 139.3 Estimated GFR (Non- 120.2 BUN/Creatinine Ratio 11.4 (10-20) Calcium Level 8.7 mg/dl (8.5-10.1) Total Bilirubin 0.2 mg/dl (0.2-1) Aspartate Amino Transf (AST/SGOT) 15 U/L (15-37) Alanine Aminotransferase (ALT/SGPT) 23 U/L (12-78) Alkaline Phosphatase 110 U/L (45-117) Total Protein 7.8 gm/dl (6.4-8.2) Albumin 3.6 gm/dl (3.4-5.0) Globulin 4.2 gm/dl (2.5-4.0) Albumin/Globulin Ratio 0.9 (0.9-2) Chemistry Specimen Hemolysis Monoscreen NEG (NEG) Influenza Type A Antigen Neg for Influ A (NEG) Influenza Type B Antigen Neg for Influ B (NEG) Urine Color YELLOW Urine Appearance CLOUDY (CLEAR) Urine pH 6.5 (4.5-7.5) Urine Specific [place] 1.030 (1.000-1.030) Urine Protein NEG (NEG) Urine Glucose (UA) NEG (NEG) Urine Ketones TRACE (NEG) Urine Occult Blood TRACE (NEG) Urine Nitrite NEG (NEG) Urine Bilirubin NEG (NEG) Urine Urobilinogen NEG (NEG) Urine Leukocyte Esterase SMALL (NEG) Urine WBC (Auto) 10-30 /hpf (0-5) Urine RBC (Auto) 0-4 /hpf (0-4) Urine Hyaline Casts (Auto) 1-5 /lpf (0-5) Urine Epithelial Cells (Auto) >30 /lpf (0-5) Urine Bacteria (Auto) 1+ (NEG) Urine Test NEG (NEG) Medications Administered Medications (Trade) Dose Ordered Sig/Eulalia Route Start Time Stop Time Status Last Admin Dose Admin Sodium Chloride 500 ml @ 999 mls/hr Q31M STAT IV 06/11/17 19:14 06/11/17 19:44 DC 06/11/17 19:27 999 MLS/HR Ondansetron HCl (Zofran Inj) 4 mg NOW STAT IV 06/11/17 19:14 06/11/17 19:18 DC 06/11/17 19:27 4 MG Ketorolac Tromethamine (Toradol Inj) 30 mg NOW STAT IV 06/11/17 19:14 06/11/17 19:18 DC 06/11/17 19:27 30 MG Azithromycin (Zithromax Tab) 500 mg NOW STAT PO 06/11/17 20:29 06/11/17 20:31 DC 06/11/17 21:17 500 MG Medical Decision Differential diagnosis includes pneumonia, influenza, mononucleosis, strep pharyngitis, viral illness, among others. The patient is a 32-year-old female who presents today complaining of flulike symptoms. Labs revealed leukocytosis consistent with infection. Labs are otherwise unremarkable. Chest x-ray did show a suprahilar opacity which likely represents developing pneumonia given the patient's symptoms. She will be placed on a Z-James. She was given IV fluids, Toradol and Zofran with some relief of her symptoms. Conservative measures were discussed. She was instructed to stay well hydrated and use Tylenol and ibuprofen as needed for pain/fevers. Based on the patient's presentation and work up, I feel the patient is stable for outpatient treatment. The patient was educated to return to the emergency department for any worsening of their current condition or new/concerning symptoms. She will follow up with her PCP. Medication Reconcilliation Current Medication List: was personally reviewed by me Blood Pressure Screening Patient's blood pressure: Normal blood pressure Impression Primary Impression: Pneumonia Departure Information Dispostion Home / Self-Care Condition GOOD Prescriptions Azithromycin (Zithromax) 250 Mg Tab 250 MG PO DAILY for 4 Days, #4 TAB Prov: Mayte Talbert .KORIN 06/11/17 Referrals Alejandro Strong M.D. (PCP) Patient Instructions My [facility] Additional Instructions You were prescribed Zithromax to be taken as prescribed. This is an antibiotic. All antibiotics have the potential to cause diarrhea. Stop this medication and contact a medical provider if you were to develop any significant adverse side effects including: wheezing, shortness of breath, passing out, vomiting, or a diffuse rash. Always take antibiotics as directed and COMPLETE the ENTIRE course regardless of the improvement of your symptoms. For pain/fever control, you can use the following [id number] medicines ( if >12 yo): -Extra strength (500 mg/tab) Tylenol (acetaminophen) 2 tabs every 6 hours as needed. Do not exceed 12 tablets in a 24 hour period. Avoid taking more than 4 grams (4000 mg) of Tylenol per day. This includes any other sources of acetaminophen you may take on a regular basis. - Regular strength (200 mg/tab) Advil (ibuprofen) 3-4 tabs every 6 hours as needed. Do not exceed a dose of 3200 mg per day. You may alternate these medications for better fever control. For instance, if you take Tylenol at noon, take ibuprofen at 3:00, Tylenol at 6:00, etc. Rest and drink plenty of fluids. Follow-up with your primary care provider later this week for a recheck. Return to the emergency department with any shortness of breath, neck stiffness , vomiting, high fevers not controlled by Tylenol or ibuprofen, or any other worsening or new/concerning symptoms.
[2017-06-11 21:19] VITALS: BP 132/82; PULSE 85; TEMP 37; O2SAT 97
== END 2017-06-11 21:19 | disposition home or self-care (01) ==
LOC: C.EDB 18:19 → C.EDC 21:19
DX: J18.9 Pneumonia, unspecified organism (principal); F17.200 Nicotine dependence, unspecified, uncomplicated; Z83.3 Family history of diabetes mellitus; Z82.49 Family history of ischemic heart disease and other diseases of the circulatory system; Z82.0 Family history of epilepsy and other diseases of the nervous system

== ENCOUNTER 2017-06-13 23:56 | Emergency (ER) | payer OTHER ==
[~2017-06-13] VITALS: Ht 149.9 cm; Wt 80.0 kg
[~2017-06-13 23:56] MED LIST changes: +AZIT250T PO; +DEXT1CAP9 PO
[2017-06-14] VITALS: TEMP 36.6; Ht 149.9 cm; Wt 80.0 kg
[2017-06-14] MEDS ORDERED: ALBUT/IPRATROP 3MG/0.5MG NEB 3 ML VIAL INH STA (00:11)
[2017-06-14] MEDS ORDERED: DEXAMETHASONE INJ 10 MG in SYRINGE 0 ML IV STA (00:11)
[2017-06-14 00:29] VITALS: O2SAT 100
[2017-06-14] MEDS ORDERED: OPTIRAY 320 IV PRN (00:30)
[2017-06-14 00:41] LABS: BASO % 0.4 %; BASO ABS # 0.05 K/uL (0-0.2); COMPLETE YES; EOS % 3.2 %; HEMATOCRIT 42.1 % (37-47); IG% 0.3 %; LYMPH % 31.7 %; LYMPH ABS # 3.69 K/uL (1.2-3.4); MEAN CELL VOLUME 91.7 fL (80-100); MEAN CORPUSCULAR HEMOGLOBIN 31.2 pg (25-34); MEAN PLATELET VOLUME 11.3 fL (7.4-10.4); MONO % 8.9 %; NEUT % 55.5 %; PLATELET COUNT 216 K/uL (130-400); RED BLOOD COUNT 4.59 M/uL (4.2-5.4); WHITE BLOOD COUNT 11.65 K/uL (4.8-10.8)
[2017-06-14] MEDS ORDERED: DEXAMETHASONE **PF** INJ 10 MG/ML VIAL ONE (00:53)
[2017-06-14 00:58] LABS: POINT OF CARE TROPONIN I < 0.030 ng/ml (0-0.045)
[2017-06-14 00:59] LABS: ALT/SGPT 37 U/L (12-78); BLOOD UREA NITROGEN 7 mg/dl (7-18); BUN/CREATININE RATIO 11.6 (10-20); CALCIUM 9.3 mg/dl (8.5-10.1); CARBON DIOXIDE 29 mmol/L (21-32); CHLORIDE 103 mmol/L (98-107); CREATININE 0.64 mg/dl (0.60-1.20); GLUCOSE 87 mg/dl (70-99); POTASSIUM 3.7 mmol/L (3.5-5.1); SODIUM 139 mmol/L (136-145)
[2017-06-14 01:02] LABS: ALKALINE PHOSPHATASE 137 U/L (45-117); AST/SGOT 25 U/L (15-37)
[2017-06-14 01:11] LABS: PREG INTERNAL NEGATIVE QC NEG CLEAR BACKGROUND; PREG INTERNAL POSITIVE QC POS CONTROL LINE
[2017-06-14] MEDS ORDERED: KETOROLAC TROMETHAMINE 30 MG/ML VIAL IV STA (02:02)
--- NOTE | 2017-06-14 02:54 | EMERGENCY ROOM VISIT NOTE ---
History First contact with patient: 00:02 Chief Complaint: RESPIRATORY PROBLEMS Stated Complaint: TROUBLE BREATHING,PAIN MIDDLE OF BACK,PNEUMONIA Nursing Triage Summary: dx with pneumonia here 2 days ago. pt reports worsening trouble breathing and pain in mid back. currently on Azithromycin History of Present Illness The patient is a 32 year old female who presents to the Emergency Room with complaints of cough, shortness of breath and upper back pain for the past few days that is steadily getting worse. Patient was seen here the other day and placed on Z-James for possible pneumonia. Patient states the back pain and breathing issues and gotten much worse. Patient occasionally smokes. No recent travel. Pain currently 5 out of 10. Nothing makes it better or worse. It does not radiate, the pain in her back. Patient denies documented fever, sore throat, headache, abdominal pain, vomiting, diarrhea, earache. She is tolerated by mouth fluids and food. Patient does have asthma. Review of Systems See HPI for pertinent positives & negatives. A total of 10 systems reviewed and were otherwise negative. Past Medical/Surgical History Medical Problems: (1) 37weeks 3 days (2) Active labor (3) Irregular contractions (4) Panic attack Surgical Problems: (1) S/P section Asthma Family History Cancer Diabetes mellitus Hypertension Seizures Social History Smoking Status: Current Some Day Smoker Alcohol Use: none Marital Status: Housing Status: lives with family Occupation Status: employed Current/Historical Medications Scheduled Azithromycin (Zithromax), 250 MG PO DAILY Metoprolol Succinate (Metoprolol Succinate ER), 50 MG PO QAM Scheduled PRN Ibuprofen Tab (Advil), 400 MG PO Q4H PRN for Pain Physical Exam Vital Signs Date Time Temp Pulse Resp B/P (MAP) Pulse Ox O2 Delivery O2 Flow Rate FiO2 06/14/17 02:22 92 16 112/73 99 Room Air 06/14/17 01:35 95 16 117/78 100 Room Air 06/14/17 00:41 Room Air 06/14/17 00:35 Room Air 06/14/17 00:29 100 Room Air 06/14/17 00:00 36.6 105 24 155/91 100 Room Air Physical Exam PHYSICAL EXAM: Vital Signs: Reviewed Nurse's notes. Oxygen saturation was 100% on room air. GENERAL: pleasant female, Alert, oriented and coherent. The patient is able to speak in complete sentences. NECK: Supple, non-tender. CHEST : Symmetrical expansion. no retractions no accessory muscle use. HEART: Regular rate and normal heart sounds, no murmur, gallop or rub. LUNGS: Breath sounds equal but significantly diminished in intensity on both sides. Bilateral wheezes heard but no rales or pleuritic rub. SKIN: The skin was without rashes, erythema, edema, or bruising. There is no tenting of the skin. Capillary reflex less than 2 seconds. HEAD: Normocephalic atraumatic. EARS: External auditory canals clear, tympanic membranes pearly pemberton without erythema or effusion bilaterally. EYES: Pupils equal round and reactive to light and accommodation. Conjunctivae without injection, sclerae without icterus. Extraocular movements intact. NOSE: Patent, turbinates without inflammation or discharge. No sinus tenderness. MOUTH: Mucous membranes moist. Pharynx without erythema or exudate. Uvula midline. Airway patent. Tongue does not deviate. ABDOMEN: Positive bowel sounds x 4. Normal tympanic percussion. Soft, nontender, without masses or organomegaly. Stinson sign negative. No guarding or rebound tenderness. MUSCULOSKELETAL: No muscle atrophy, erythema, or edema noted. NEURO: Patient was alert and oriented to person place and time. No focal neurological deficits. Medical Decision & Procedures Laboratory Results 06/14/17 00:30 Red Blood Count 4.59, Mean Corpuscular Volume 91.7, Mean Corpuscular Hemoglobin 31.2, Mean Corpuscular Hemoglobin Concent 34.0, Mean Platelet Volume 11.3, Neutrophils (%) (Auto) 55.5, Lymphocytes (%) (Auto) 31.7, Monocytes (%) (Auto) 8.9, Eosinophils (%) (Auto) 3.2, Basophils (%) (Auto) 0.4, Neutrophils # (Auto) 6.46, Lymphocytes # (Auto) 3.69, Monocytes # (Auto) 1.04, Eosinophils # (Auto) 0.37, Basophils # (Auto) 0.05 06/14/17 00:30 Test 06/14/17 00:30 06/14/17 00:31 06/14/17 00:37 06/14/17 02:24 White Blood Count 11.65 K/uL (4.8-10.8) Red Blood Count 4.59 M/uL (4.2-5.4) Hemoglobin 14.3 g/dL (12.0-16.0) Hematocrit 42.1 % (37-47) Mean Corpuscular Volume 91.7 fL (80-100) Mean Corpuscular Hemoglobin 31.2 pg (25-34) Mean Corpuscular Hemoglobin Concent 34.0 g/dl (32-36) Platelet Count 216 K/uL (130-400) Mean Platelet Volume 11.3 fL (7.4-10.4) Neutrophils (%) (Auto) 55.5 % Lymphocytes (%) (Auto) 31.7 % Monocytes (%) (Auto) 8.9 % Eosinophils (%) (Auto) 3.2 % Basophils (%) (Auto) 0.4 % Neutrophils # (Auto) 6.46 K/uL (1.4-6.5) Lymphocytes # (Auto) 3.69 K/uL (1.2-3.4) Monocytes # (Auto) 1.04 K/uL (0.11-0.59) Eosinophils # (Auto) 0.37 K/uL (0-0.5) Basophils # (Auto) 0.05 K/uL (0-0.2) RDW Standard Deviation 46.2 fL (36.4-46.3) RDW Coefficient of Variation 13.8 % (11.5-14.5) Immature Granulocyte % (Auto) 0.3 % Immature Granulocyte # (Auto) 0.04 K/uL (0.00-0.02) Anion Gap 7.0 mmol/L (3-11) Est Creatinine Clear Calc Drug Dose 116.5 ml/min Estimated GFR () 137.8 Estimated GFR (Non- 118.9 BUN/Creatinine Ratio 11.6 (10-20) Calcium Level 9.3 mg/dl (8.5-10.1) Total Bilirubin 0.3 mg/dl (0.2-1) Direct Bilirubin < 0.1 mg/dl (0-0.2) Aspartate Amino Transf (AST/SGOT) 25 U/L (15-37) Alanine Aminotransferase (ALT/SGPT) 37 U/L (12-78) Alkaline Phosphatase 137 U/L (45-117) Total Protein 8.5 gm/dl (6.4-8.2) Albumin 3.9 gm/dl (3.4-5.0) Lipase 117 U/L (73-393) Human Chorionic Gonadotropin, Qual NEG (NEG) Bedside Lactic Acid Venous 0.89 mmol/L (0.90-1.70) Bedside D-Dimer > 450 ng/mlFEU (0-450) Bedside Troponin I < 0.030 ng/ml (0-0.045) Medications Administered Medications (Trade) Dose Ordered Sig/Eulalia Route Start Time Stop Time Status Last Admin Dose Admin Albuterol/ Ipratropium (Duoneb) 3 ml NOW STAT INH 06/14/17 00:11 06/14/17 00:14 DC 06/14/17 00:40 3 ML Dexamethasone Sodium Phosphate (Dexamethasone Inj Pf) 10 mg STK-MED ONCE .ROUTE 06/14/17 00:53 06/14/17 00:54 DC 06/14/17 00:53 10 MG Ketorolac Tromethamine (Toradol Inj) 30 mg NOW STAT IV 06/14/17 02:02 06/14/17 02:03 DC 06/14/17 02:17 30 MG ED Course Prior records/ancillary studies reviewed. Triage Nursing notes reviewed. The patient's history was concerning for respiratory difficulties. Differential diagnosis: Etiologies such as infections, reactive airway disease, pneumonia, pneumothorax , COPD, CHF, cardiac ischemia, pulmonary embolism, musculoskeletal, gastrointestinal, as well as others were entertained. Physical examination: As above. ER treatment provided: Decadron, nebulizer, Toradol On reassessment the patient felt better. Diagnostic interpretation by me: The electrocardiogram was negative for acute ischemic or pathologic change. Normal sinus, normal intervals, no acute ST-T wave changes. Impression normal sinus rhythm interpreted by myself The labs revealed elevated d-dimer. Negative troponin 2 that is greater than 2 hours apart Imaging studies: Chest x-ray with no acute consolidation, pneumothorax or free air per my interpretation CTA negative for PE or other acute disease per radiology. This appears to be consistent with asthmatic bronchitis. Patient felt much better to be medicated as above. She had a normal EKG. Negative CTA. 2 troponins that are negative greater than 2 hours apart. She was advised to take medications as directed and to follow-up family care in a few days or here in the ER sooner for chest pain, difficulty breathing, worsening signs or symptoms or as needed. She was strongly encouraged to quit smoking. She was informed her cough may hang out for a few weeks. By the evaluation outlined above emergent etiologies such as CHF, cardiac ischemia, pulmonary embolism, pneumonia, pneumothorax, musculoskeletal, serious bacterial infections, as well as others were deemed relatively unlikely. The pt informed about the findings as listed above. All questions were answered and pleased with the treatment. Return instructions were outlined and the patient was discharged in stable condition. Outpatient prescription management: Prednisone Referral: The patient was referred back to their primary care physician for follow-up in 2 to 3 days for a recheck of the current condition. Case reviewed with my attending Medical Decision As above Medication Reconcilliation Current Medication List: was personally reviewed by me Blood Pressure Screening Patient's blood pressure: Normal blood pressure Impression Primary Impression: Asthmatic bronchitis Additional Impression: Upper back pain Departure Information Dispostion Home / Self-Care Condition GOOD Referrals Alejandro Strong M.D. (PCP) Patient Instructions My [facility] Additional Instructions Albuterol Inhaler: Take 2 puffs four times daily for five days, then as needed. Prednisone 50mg: Once daily until the prescription is finished. It is best to take this earlier in the day as some patients note occasional difficulty falling asleep when taken in the late evening. Your cough may linger for a few weeks. Acetaminophen(Tylenol) may be used for fever or pain. Use 1000mg every six hours as needed. Avoid using more than 3000mg in a 24 hour period. (AND/OR) Ibuprofen(Motrin, Advil) may be used for fever or pain. Use 600mg every six hours as needed. Take with food. Avoid using more than 2400mg in a 24 hour period. Do not use 2400mg per day for more than three consecutive days without physician direction. Prolonged inappropriate use can lead to stomach upset or ulcers. Rest and drink plenty of fluids. Avoid smoke/smoking, fumes, dust, or any triggers in the past that may have affected your breathing. Continue current medications. Return to the ER for chest pain, difficulty breathing, fevers, vomiting, worsening of your condition, or as needed. Follow up with your primary physician this week for a recheck of your current condition. Problem Qualifiers Primary Impression: Asthmatic bronchitis Asthma severity: moderate Asthma persistence: persistent Asthma complication type: with acute exacerbation Qualified Codes: J45.41 - Moderate persistent asthma with (acute) exacerbation
[2017-06-14] MEDS ORDERED: PRED50TA PO (02:55)
[2017-06-14] MEDS ORDERED: ALBUTEROL HFA 8 GM INHALER INH STA (02:58)
[2017-06-14 03:05] VITALS: BP 142/64; PULSE 80; O2SAT 98
--- NOTE | 2017-06-14 06:35 | DIAGNOSTIC IMAGING REPORT ---
CT ANGIOGRAM OF THE CHEST CLINICAL HISTORY: Atypical chest pain, shortness of breath, COMPARISON STUDY: Chest x-ray dated 06/14/2017 TECHNIQUE: Following the IV administration of 96 mL of [id number]-320, CT angiogram of the thorax was performed from the thoracic inlet to the lung bases utilizing the pulmonary embolus protocol. Images are reviewed in the axial, sagittal, and coronal planes. IV contrast was administered without complication. MIP imaging was performed. A dose lowering technique was utilized adhering to the principles of ALARA. CT DOSE: 428.58 mGy.cm FINDINGS: No pathologically enlarged axillary mediastinal or hilar lymph nodes were visualized. There was no evidence of thoracic aortic dilatation. There were no pulmonary artery filling defects to indicate acute pulmonary embolism. No pleural effusions are visualized. There was no evidence of focal pulmonary consolidation. IMPRESSION: 1. No acute intrathoracic findings 2. No evidence of acute pulmonary embolism 3. No evidence of focal pulmonary consolidation Electronically signed by: Fabio Joiner M.D. 06/14/2017 6:34 AM Dictated Date/Time: 06/14/2017 6:31 AM
--- NOTE | 2017-06-14 07:06 | DIAGNOSTIC IMAGING REPORT ---
SINGLE VIEW CHEST CLINICAL HISTORY: Atypical chest pain. FINDINGS: An AP, portable, upright chest radiograph is compared to study dated 06/11/2017. The examination is degraded by portable technique and patient rotation. The cardiomediastinal silhouette is unremarkable. There are low lung volumes. The lungs and pleural spaces are clear. No pneumothorax is seen. The bony thorax is grossly intact. IMPRESSION: Low lung volumes with no active disease in the chest. Electronically signed by: Marshall Luciano M.D. 06/14/2017 7:05 AM Dictated Date/Time: 06/14/2017 7:04 AM
== END 2017-06-14 03:06 | disposition home or self-care (01) ==
LOC: C.EDB 23:57
DX: J45.909 Unspecified asthma, uncomplicated (principal); M54.6 Pain in thoracic spine; Z72.0 Tobacco use; Z83.3 Family history of diabetes mellitus; Z82.49 Family history of ischemic heart disease and other diseases of the circulatory system; Z82.0 Family history of epilepsy and other diseases of the nervous system

== ENCOUNTER 2017-08-25 17:35 | Emergency (ER) | payer OTHER ==
[~2017-08-25] VITALS: Ht 149.9 cm; Wt 81.8 kg
[~2017-08-25 17:35] MED LIST changes: -AZIT250T PO; -CYCL10TA6 PO; -DEXT1CAP9 PO; -PRVHFAIN INH
[2017-08-25 18:05] VITALS: BP 158/95; PULSE 86; TEMP 36.9; O2SAT 99; Ht 149.9 cm; Wt 81.8 kg
[2017-08-25] MEDS ORDERED: VNTHFA/IN INH (18:34)
--- NOTE | 2017-08-25 19:05 | DIAGNOSTIC IMAGING REPORT ---
RIGHT KNEE 3 VIEWS HISTORY: right knee injury COMPARISON: None. FINDINGS: There is no fracture or dislocation. Soft tissues are unremarkable. No radiopaque foreign bodies. No significant knee effusion. IMPRESSION: No fractures. Electronically signed by: Bret Oropeza M.D. 08/25/2017 7:03 PM Dictated Date/Time: 08/25/2017 7:03 PM
[2017-08-25] MEDS ORDERED: PRED20TA2 PO (20:11)
[2017-08-25] MEDS ORDERED: NORCO 5/325MG HOME PACK PO ONE (20:15)
--- NOTE | 2017-08-26 00:47 | EMERGENCY ROOM VISIT NOTE ---
ED Visit Note First contact with patient: 18:19 CHIEF COMPLAINT: knee pain HISTORY OF PRESENT ILLNESS: This 32-year-old female patient presents to the emergency department with right knee pain off and on for the past 2-3 months. Her pain is significant only worsened the past one day. 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 She states that it brought her to tears last night. She did not recall a distinct injury or trauma. The patient denies any other injuries besides their knee. The patient is without significant swelling or bruising. There is pain diffusely. They rate the pain as sharp and 9/10. The patient states they are not comfortably to walk on it. No numbness or tingling. No previous injuries to this knee. No ankle, foot or hip pain. REVIEW OF SYSTEMS: A 6 system review of systems was completed with positives and pertinent negatives listed in the HPI. ALLERGIES: See EMR MEDICATIONS: See EMR PMH: No chronic medical disease SOCIAL HISTORY: Employed and lives locally PHYSICAL EXAM: Vital Signs: Reviewed Nurse's notes, vital signs stable. GENERAL : White female, no acute distress, but appears in pain, well-developed, well- nourished. MENTAL STATUS: Alert, oriented to person place and time, and cooperative. MUSCULOSKELETAL: The right knee is not swollen. There is no ecchymosis. There is mild anterior joint effusion present. The patient is tender diffusely. There is no distinct joint line tenderness. The patella does not subluxate. Range of motion is normal. Strength of the quads and hamstrings is 5/5. Rema's is negative. Quirino's and Anterior Drawer tests are negative. There is no laxity with varus and valgus stressing. The foot and toes are warm and well-perfused. Dorsalis pedis pulse 2+. Sensation to pain and light touch is intact. Capillary refill less than 2 seconds. RIGHT KNEE 3 VIEWS HISTORY: right knee injury COMPARISON: None. FINDINGS: There is no fracture or dislocation. Soft tissues are unremarkable. No radiopaque foreign bodies. No significant knee effusion. IMPRESSION: No fractures. EMERGENCY DEPARTMENT COURSE: I examined the patient. X-rays of the right knee were reviewed by myself and read by radiology and reveal no fracture or dislocation. The patient was placed in a knee immobilizer under my direction and the position was satisfactory. The patient was instructed on the use of crutches. I will give her a home pack of Vicodin and a short course of steroids. The patient will need to follow with orthopedics. She was discharged home in stable condition. Problem List Medical Problems: (1) Panic attack Status: Chronic Surgical Problems: (1) S/P section Status: Resolved Current/Historical Medications Scheduled Prednisone (Prednisone Tab), 2 TAB PO DAILY Scheduled PRN Albuterol Hfa (Ventolin Hfa), 2 PUFFS INH UD PRN for SOB/Wheezing Ibuprofen Tab (Advil), 800 MG PO Q8 PRN for Pain Allergies Coded Allergies: Sulfamethoxazole w/Trimethoprim (Verified Allergy, Severe, HIVES, 02/28/17) Iodinated Diagnostic Agents (Verified Allergy, Unknown, Skin son, ) Sulfa Antibiotics (Verified Allergy, Unknown, rash, 02/28/17) Uncoded Allergies: HAIR DYE (Allergy, Unknown, Skin son, 08/25/17) metal (Adverse Reaction, Intermediate, RASH, 10/23/15) had skin irritation with shannon & also with some jewelry that contains nickel Vital Signs Date Time Temp Pulse Resp B/P (MAP) Pulse Ox O2 Delivery O2 Flow Rate FiO2 08/25/17 18:05 36.9 86 18 158/95 99 Room Air Medications Administered Medications (Trade) Dose Ordered Sig/Eulalia Route Start Time Stop Time Status Last Admin Dose Admin Acetaminophen/ Hydrocodone Bitart ([place] 5/325mg Home Pack) 1 homepack UD ONCE PO 08/25/17 20:15 08/25/17 20:16 DC 08/25/17 20:26 1 HOMEPACK Departure Information Impression Primary Impression: Right knee pain Dispostion Home / Self-Care Condition GOOD Prescriptions Prednisone (Prednisone Tab) 20 Mg Tab 2 TAB PO DAILY for 5 Days, #10 TAB Prov: Miguel Angel Malcolm PA-C 08/25/17 Referrals Miguel Angel Monzon M.D. Forms HOME CARE DOCUMENTATION FORM, IMPORTANT VISIT INFORMATION Patient Instructions My [facility], ED RICE Additional Instructions You were seen and evaluated today on an emergency basis only. This is not a substitute for, or an effort to provide, complete comprehensive medical care. It is not possible to recognize and treat all injuries or illnesses in a single emergency department visit. For this reason it is recommended that you followup with Orthopedics, Dr. Monzon's office, this week for ongoing care and evaluation. Use your knee immobilizer and crutches until otherwise instructed by orthopedics. For baseline pain relief you may alternate ibuprofen and acetaminophen every 4 hours for pain control. Take 600 mg ibuprofen (Advil) and then 4 hours later take 1000 mg acetaminophen (Tylenol). Do not take more than 3000 mg acetaminophen in a single day. [place] (hydrocodone/acetaminophen) 5/325 mg (homepack) every 6 hours as needed for worsening breakthrough pain. Do not drink or drive on [place]. This medication will likely make you tired. Do not take [place] and Tylenol at the same time as both contain acetaminophen. [place] may cause constipation. You may wish to take an [id number] stool softener like Colace if this occurs. You are welcome to return to the emergency department anytime with new, worsening, or concerning symptoms.
== END 2017-08-25 20:27 | disposition home or self-care (01) ==
LOC: C.EDB 17:36 → C.EDD 20:27
DX: M25.561 Pain in right knee (principal)

== ENCOUNTER 2017-12-04 20:33 | Emergency (ER) | payer OTHER ==
[~2017-12-04] VITALS: Ht 149.9 cm; Wt 83.3 kg
[~2017-12-04 20:33] MED LIST changes: -TPRSR/50 PO; +VNTHFA/IN INH
[2017-12-04 20:41] VITALS: TEMP 36.7; Ht 149.9 cm; Wt 83.3 kg
--- NOTE | 2017-12-04 21:24 | EMERGENCY ROOM VISIT NOTE ---
History Report prepared by Kyle: Jade Fatima Under the Supervision of: Dr. Juancho Ayala M.D. First contact with patient: 20:50 Chief Complaint: OTHER COMPLAINT Stated Complaint: SWELLING, VERY ITCHY BREASTS, NOTICED SMALL LUMP History of Present Illness The patient is a 32 year old white female with a past medical history of hypertension who presents to the ED with a cc of worsening breast rash beginning 2 years ago. She is on nystatin cream to some relief. Positive small lump in breast. Negative trauma, discharge or bleeding from breasts, fever, chills, nausea, vomiting. She has a family history of breast cancer in her grandmother. She does smoke. Source of History: patient Onset: 2 years ago Position: other (breast) Quality: other (rash) Timing: worsening Associated Symptoms: No fevers, No chills, No nausea, No vomiting Review of Systems See HPI for pertinent positives and negatives. A total of ten systems were reviewed and were otherwise negative. Past Medical & Surgical Medical Problems: (1) 37weeks 3 days (2) Active labor (3) Irregular contractions (4) Panic attack Surgical Problems: (1) S/P section Family History Cancer Diabetes mellitus Hypertension Seizures Social History Smoking Status: Current Every Day Smoker Alcohol Use: none Marital Status: Housing Status: lives with family Occupation Status: employed Current/Historical Medications Scheduled PRN Albuterol Hfa (Ventolin Hfa), 2 PUFFS INH UD PRN for SOB/Wheezing Ibuprofen Tab (Advil), 800 MG PO Q8 PRN for Pain Allergies Coded Allergies: Sulfamethoxazole w/Trimethoprim (Verified Allergy, Severe, HIVES, 02/28/17) Iodinated Diagnostic Agents (Verified Allergy, Unknown, Skin son, ) Sulfa Antibiotics (Verified Allergy, Unknown, rash, 02/28/17) Uncoded Allergies: HAIR DYE (Allergy, Unknown, Skin son, 08/25/17) metal (Adverse Reaction, Intermediate, RASH, 10/23/15) had skin irritation with shannon & also with some jewelry that contains nickel Physical Exam Vital Signs Date Time Temp Pulse Resp B/P (MAP) Pulse Ox O2 Delivery O2 Flow Rate FiO2 12/04/17 21:40 82 20 136/93 96 12/04/17 20:41 36.7 95 20 157/108 100 Room Air Physical Exam GENERAL: Awake, alert, well-appearing, NAD HENT: Normocephalic, atraumatic. EYES: Normal conjunctiva. Sclera non-icteric. PERRL. No anisocoria. NECK: Supple. No nuchal rigidity. FROM. CHEST: Large breasts, subtle redness near b/l areola. No discharge or surrounding erythema. No fluctuance. No masses palpated. No pain in b/l axilla. No masses felt in the axillae. RESPIRATORY: CTAB, no rhonchi, wheezing, crackles CARDIAC: RRR, no MRG ABDOMEN: Soft, NTND, BS+ MSK: No chest wall TTP, no LE edema NEURO: GCS 15, CN 2-12 intact, moves all 4s on command SKIN: No rash or jaundice noted. Medical Decision & Procedures ED Course 2110: The patient was evaluated in room B7. A complete history and physical exam was performed. Discussed results and discharge instructions: She verbalized understanding and agreement. The patient is ready for discharge. Medical Decision Nursing notes reviewed. Ancillary studies and prior records reviewed. The patient is a 32 year old white female with a past medical history of hypertension who presents to the ED with a cc of worsening breast rash beginning 2 years ago. Differential diagnosis: Etiologies such as mastitis, irritation from bra, contact dermatitis, viral exanthem, urticaria, allergic reaction, Padron-Russell syndrome, toxic epidermal necrolysis, erythema multiforme, cellulitis, scabies, HSV, varicella, zoster, eczema, staph scalded skin syndrome, fungal infection, as well as others were entertained. Patient was seen and evaluated the bedside. Patient was complaining of a redness as well as itchiness to the bilateral breasts. Patient was also concerned about a possible mass that she had palpated. On exam the patient does have some trace of very subtle redness. There does not appear to be any fluctuance, masses. Patient does have a prior history of some breast cancer in her grandmother but not her mother. The patient does see a women's health specialist. She was told to follow-up with them to discuss any further imaging or treatment with regard to possible breast masses however none are felt at this time. Patient was told that she may try a more supportive bra with a softer fabric as it is possible her traditional bra may be causing some irritation or abrasive redness to the skin. Patient was told to continue to use cream as well as the nystatin. She was also told that she can start taking Zyrtec daily and to take Benadryl as needed. She was told that she may also use a Benadryl cream to help with any itchiness and may use some Cortaid but should not use it for more than 2 days at a time as it may cause skin thinning. I do not believe that the patient has any sort of infection. I do not believe that she requires any imaging or blood work at this time. Patient denies any history of diabetes and does not take any immunosuppressant drugs. Patient was counseled on smoking cessation as well as diet and exercise to help with her hypertension. Patient was given strict follow-up, discharge, and return precautions. All questions were answered. Patient was deemed suitable for outpatient follow-up at this time. Patient agreed with the plan of care and was safely discharged home. Medication Reconcilliation Current Medication List: was personally reviewed by me Blood Pressure Screening Patient's blood pressure: Elevated blood pressure Blood pressure disposition: Referred to PCP Impression Primary Impression: Pruritic condition Additional Impression: Encounter for smoking cessation counseling Scribe Attestation The scribe's documentation has been prepared under my direction and personally reviewed by me in its entirety. I confirm that the note above accurately reflects all work, treatment, procedures, and medical decision making performed by me. Departure Information Dispostion Home / Self-Care Referrals Alejandro Strong M.D. (PCP) Patient Instructions ED Smoking Cessation, Hypertension [place], My [facility] Additional Instructions Please return to the emergency department if you have worsening or recurrent symptoms not amenable to at-home treatment. Please call for a follow-up appointment with her primary care physician. Please take your medications as prescribed. If you have other concerns and/or complaints please feel free to also call your primary care physician's office or return the ED for further evaluation, management, and treatment. You were found to have an elevated blood pressure today (>120 sytolic or >90 diastolic). Per medicare guidelines, you need to follow up with this blood pressure screening with your Primary Care Physician (PCP). For a new PCP call [phone]. You received narcotic or benzodiazepene medication while in the emergency room today. This is an addictive medication that may cause drowziness as well as constipation. Do not drive, operate heavy machinery, or drink alcohol under the influence of this medication. You may take 800 mg Ibuprofen every 6 hours as needed for pain/fever with food unless told by your physician not to take NSAIDs. You may take tylenol 1000 mg every 6 hours as needed for pain/fever unless told by your physician to not take it or have liver problems. You may take motrin and tylenol separately or at the same time. Take your medications as prescribed. As discussed you may consider using a more supportive bra with a softer fabric compared to a traditional bra. You may continue to use the cream as well as the nystatin. Also consider using Benadryl cream or ointment to the affected area to help with itchiness. Cortaid cream or ointment may also help with this but do not use this for more than 2 days at a time as it can cause some skin thinning. Please take a Zyrtec daily. If you have any worsening itchiness you may consider a Benadryl as needed. Please be advised that the Benadryl by mouth can cause some dry mouth as well as some sleepiness. Please do not use if you have to work or drive. You have been examined and treated today on an emergency basis only. This is not a substitute for, or an effort to provide, complete comprehensive medical care. It is impossible to recognize and treat all injuries or illnesses in a single emergency department visit. It is therefore important that you follow up closely with [facility], your PCP, and/or your specialist(s). Call as soon as possible for an appointment. Thank you for your time and consideration. I look forward to speaking with you again soon. Please don't hesitate to call us if you have any questions. Problem Qualifiers
[2017-12-04 21:40] VITALS: BP 136/93; PULSE 82; O2SAT 96
== END 2017-12-04 21:42 | disposition home or self-care (01) ==
LOC: C.EDB 20:34
DX: L29.9 Pruritus, unspecified (principal); Z71.6 Tobacco abuse counseling; I10 Essential (primary) hypertension; Z80.3 Family history of malignant neoplasm of breast; F17.210 Nicotine dependence, cigarettes, uncomplicated; Z83.3 Family history of diabetes mellitus; Z82.49 Family history of ischemic heart disease and other diseases of the circulatory system; Z82.0 Family history of epilepsy and other diseases of the nervous system; Z88.2 Allergy status to sulfonamides; Z91.041 Radiographic dye allergy status; Z91.048 Other nonmedicinal substance allergy status

== ENCOUNTER 2020-09-10 09:12 | Inpatient (IN) ==
--- NOTE | 2020-08-31 14:11 | PAT Medication Instructions ---
Medication Instructions Date of Service August 31, 2020 Home Medications Medication Instructions Recorded albuterol sulfate 90 mcg/actuation 2 puffs INH Q6H PRN #18 gm 07/21/19 aerosol inhaler metoprolol succinate 50 mg 50 mg PO HS #30 tab 03/18/20 tablet,extended release 24 hr buspirone 15 mg tablet 15 mg PO BID #180 tab 07/06/20 fluoxetine 20 mg capsule 20 mg PO DAILY #90 cap 07/06/20 albuterol sulfate 90 mcg/actuation aerosol inhaler 2 puffs INH Q6H PRN melatonin 10 mg tablet 20 mg PO HS metoprolol succinate 50 mg tablet,extended release 24 hr 50 mg PO HS buspirone 15 mg tablet 15 mg PO BID fluoxetine 20 mg capsule 20 mg PO DAILY Take morning of surgery With a small sip of water, OTHERWISE NOTHING TO EAT OR DRINK AFTER MIDNIGHT: albuterol sulfate 90 mcg/actuation aerosol inhaler 2 puffs INH Q6H PRN (use if needed; please bring rescue inhaler with you to hospital day of surgery if possible) buspirone 15 mg tablet 15 mg PO BID fluoxetine 20 mg capsule 20 mg PO DAILY Take evening before surgery albuterol sulfate 90 mcg/actuation aerosol inhaler 2 puffs INH Q6H PRN (if needed) melatonin 10 mg tablet 20 mg PO HS metoprolol succinate 50 mg tablet,extended release 24 hr 50 mg PO HS buspirone 15 mg tablet 15 mg PO BID Other Notes If you have any questions please call us at [phone] or [phone] or [phone] or [phone]
--- NOTE | 2020-08-31 17:45 | History and Physical Report ---
DATE OF ADMISSION: 09/10/2020 CHIEF COMPLAINT: Pelvic pain, severe dysmenorrhea. HISTORY OF PRESENT ILLNESS: The patient is a 35-year-old 3, para 2. She had 1 first trimester miscarriage. She has had 2 pregnancies, which were induced with Clomid. She had tubal ligation for control in 2019. She has had worsening severe pelvic pain for over 4 years. It started after she had her second . Her periods are described as 28-30 days, they last for 7 days, bleeding is heavy at times with passage of clots and she has severe pelvic pain starting 1 week prior to her period giving her about 17 days a month of severe pelvic pain, at times debilitating and not responsive to nonnarcotic pain medications including maximum doses of Anaprox. This pain has been present for 4 years, it is getting progressively worse. She has difficulty going to work due to this pain and she is presently being scheduled for a total abdominal hysterectomy with possible removal of both ovaries at the time of surgery. ALLERGIES: SHE STATES SHE IS ALLERGIC TO SULFA. PAST MEDICAL HISTORY: She is on medications for depression, Prozac 20 mg a day and metoprolol 50 mg daily for high blood pressure. She has a history of superficial phlebitis in her right leg 2 years ago. She did not have an embolus from this. PAST SURGICAL HISTORY: She has had a x2. She had diagnostic lap, D and C with tubal ligation x1. SOCIAL HISTORY: She is a half a pack a day smoker for 10 years. No history excessive alcohol intake. 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 FAMILY HISTORY: She has 2 children in good health. Mom is 56 in good health, dad is 65 in good health. Two brothers and one sister in good health. REVIEW OF SYSTEMS: HEAD: No symptoms of frequent or severe headaches. EYES: No symptoms of blurred vision or double vision. EARS: No symptoms of frequent ear infection or difficulty hearing. NOSE: No symptoms of frequent nosebleeds or difficulty breathing through her nose. THROAT: No symptoms of frequent or severe sore throat or difficulty swallowing. RESPIRATORY SYSTEM: No history of asthma, chest pain, or shortness of breath. PHYSICAL EXAMINATION: GENERAL: Well-developed, well-nourished 35-year-old white female, alert, oriented x3 and cooperative, in no acute distress, appeared her stated age. EYES: Conjunctivae are pink. Sclerae white, no evidence of jaundice. EARS: Had normal light reflex bilaterally. NOSE: Had normal mucosa. Septum is midline. There were no polyps. THROAT: No erythema or evidence of infection. Teeth are in good state of repair. HEAD: Normocephalic, normal distribution of hair. NECK: Supple. Trachea midline. Thyroid is not enlarged. There is no adenopathy appreciated. Both carotids are of good intensity. CHEST: Clear to auscultation and percussion. No wheezes, rales or rhonchi appreciated. ABDOMEN: Revealed a well-healed Pfannenstiel scar. PELVIC: Normal-appearing cervix. Uterus was anteverted. Uterus itself was quite tender. No adnexal masses appreciated. MUSCULOSKELETAL: Revealed no calf tenderness. IMPRESSIONS OF THIS CASE: History of superficial phlebitis, right leg; elevated blood pressure; depression; section x2; status post tubal ligation and severe pelvic pain secondary to adenomyosis.
--- NOTE | 2020-09-03 10:23 | Anesthesiology Consultation ---
Date of Service September 03, 2020 Assessment & Plan (1) Encounter for pre-operative examination: COVID Status: As of 09/03 assessment, patient denies travel to endemic area, known exposure/sick contacts, or symptoms of COVID19. Patient instructed that they and their household members must follow strict social distancing guidelines, wear a mask in public and avoid travel/events/gatherings for 14 days prior to surgery. Preoperative COVID19 testing to be completed prior to surgery per surgeon's arrangements. Patient made aware to self-isolate as much as possible between COVID testing and surgery. 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 Patient reports h/o difficult spinal with C/S x 2. 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 IV induction smooth. No complications. Chart Review Chart Review: Acceptable Risk for Surgery and Patient seen in Pre Admission Te sting Teaching & Discussion Instructed NPO after midnight before surgery, except medications with 15 cc of water. Medication instructions provided according to the PAT guidelines. History Surgery Operation Date: 09/10/20 12:00 Proposed Procedures p Total Abdominal Hysterectomy, Bilateral Salphingo-Oophorectomy - Latrell Garcia MD Height/Weight Height: 4 ft 11 in Weight: 88.6 kg Allergies Allergy/AdvReac Type Severity Reaction Status Date / Time Bactrim Allergy Severe HIVES Verified 02/28/17 17:33 sulfamethoxazole Allergy Severe Hives Verified 09/01/20 14:44 trimethoprim Allergy Severe Hives Verified 09/01/20 14:44 Iodinated Contrast Media Allergy Intermediate Skin Verified 09/01/20 14:44 burning nickel Allergy Intermediate Hives Verified 08/27/20 14:29 Sulfa (Sulfonamide Allergy Mild Rash Verified 09/01/20 14:44 Antibiotics) HAIR DYE Allergy Intermediate Skin Uncoded 09/01/20 14:44 burning Medications Home Medications Medication Instructions Recorded Confirmed Last Taken albuterol sulfate 90 mcg/actuation 2 puffs INH Q6H PRN #18 gm 07/21/19 08/27/20 Unknown aerosol inhaler melatonin 10 mg tablet 20 mg PO HS tab 02/10/20 08/27/20 Unknown metoprolol succinate 50 mg 50 mg PO HS #30 tab 03/18/20 08/27/20 Unknown tablet,extended release 24 hr buspirone 15 mg tablet 15 mg PO BID #180 tab 07/06/20 08/27/20 Unknown fluoxetine 20 mg capsule 20 mg PO DAILY #90 cap 07/06/20 08/27/20 Unknown Past Medical History Medical History Anxiety and depression Asthma "mild"/last inhaler use 1 month ago Deep vein thrombosis 1 year ago > felt r/t OCP, previous AC discontinued Endometriosis GERD (gastroesophageal reflux disease) Hypertension Migraine Ovarian cyst Pelvic pain Seasonal allergies Temporomandibular joint disorder + jaw clicking Exercise / Class Metabolic Activity II 4-5 Yardwork/Stairs/Walk up hill Past Family History Family History Grandmother (Paternal) Breast cancer Family history of diabetes mellitus Grandmother (Paternal) Family hx of colon cancer Other Coronary heart disease Denies family history of Ovarian cancer Prostate cancer Diabetes Myocardial infarction Colorectal cancer Past Surgical History Surgical History Family history of reaction to anesthesia Father- nausea, "slow to wake" H/O tubal ligation Laparoscopic tubal ligation: 12/18/19: Glidescope#4, ETT 7 at [facility] History of delivery x2 History of hysteroscopy History of tooth extraction Past Anesthesia History No Hx of Anesthesia Complications and No Family Hx of Anesthesia Complications (other than father PONV) History of PONV No Hx of PONV and No Hx of Motion Sickness Social History Smoking Status: Current every day smoker tobacco type: cigarettes Smoking cigarettes per day: 12 PER DAY Do You Dip or Chew Tobacco: No Hx Alcohol Use: Yes Alcohol type: beer and hard liquor alcohol intake frequency: holidays/special occasions only Hx Substance Use: Yes substance use type: marijuana Last Used Substance Other:: LAST USED YESTERDAY (ADVISED) Review of Systems Pt denies any recent chest pain, shortness of breath, palpitations, cough, fever, URI. + uncontrolled acid reflux, gets daily, takes PRN zantac. Physical Exam Vital Signs BP: 100/52 P: 71bpm SPO2: 98% RA T: 98.3 F R: 16 ENMT Mouth: + chipped teeth (two upper molars, one on each side chipped); no loose teeth Thyromental Distance: > or= 3.5 Finger Breadths Mallampati Class: II Mouth / Teeth: 1. missing Neck neck extension not limited Respiratory normal respiratory effort, lungs clear to auscultation Cardiovascular RRR, no murmur, no edema Testing Laboratory Results 09/03/20 11:04 09/03/20 11:04 PT 9.5 Seconds (9.0-12.0) 09/03/20 11:04 INR 0.9 (0.9-1.1) 09/03/20 11:04 APTT 25.7 Seconds (21.0-31.0) 09/03/20 11:04 Blood Type B Positive 09/03/20 11:04 Antibody Screen NEGATIVE 09/03/20 11:04 Chest X-Ray Date: 01/31/20 Findings: + NAD
[2020-09-03 12:07] LABS: Basophils # (auto) 0.03 K/uL (0-0.2); Basophils % (auto) 0.5 %; Eosinophils # (auto) 0.49 K/uL (0-0.5); Eosinophils % (auto) 7.9 %; Hematocrit (blood only) 41.5 % (37-47); Lymphocytes # (auto) 2.44 K/uL (1.2-3.4); Lymphocytes % (auto) 39.2 %; Mean Corpuscular Hemoglobin 31.7 pg (25-34); Mean Corpuscular Hgb Conc 33.7 g/dL (32-36); Mean Corpuscular Volume 93.9 fL (80-100); Mean Platelet Volume 11.8 fL (7.4-10.4); Monocytes % (auto) 6.4 %; Neutrophils # (auto) 2.86 K/uL (1.4-6.5); Platelet Count 285 K/uL (130-400); RDW Coefficient of Variation 13.5 % (11.5-14.5); RDW Standard Deviation 47.2 fL (36.4-46.3); Red Blood Count 4.42 M/uL (4.2-5.4); White Blood Count 6.22 K/uL (4.8-10.8)
[2020-09-03 12:16] LABS: BUN Creatinine Ratio 18.7 (10-20); Calcium 9.2 mg/dl (8.5-10.1); Creatinine Clr Calc Pharmacy 121.9 ml/min; Est GFR (African American) 135.6; Potassium 4.8 mmol/L (3.5-5.1)
[2020-09-03 12:20] LABS: INR 0.9 (0.9-1.1); Partial Thromboplastin Time 25.7 Seconds (21.0-31.0); Prothrombin Time 9.5 Seconds (9.0-12.0)
[~2020-09-10 09:12] MED LIST changes: -IBUP-103 PO; +LR 15ML/HR IV SCH; -VNTHFA/IN INH; +cefOXitin 2,000 MG in DEXTROSE 5% 50 ML IV SCH
--- NOTE | 2020-09-10 10:57 | History & Physical Bridge Note ---
Date of Service September 10, 2020 History & Physical Bridge Note I have examined the patient, reviewed the History & Physical and in the interval since the performance of the History & Physical I have noted the following changes of clinical significance: no changes noted
[2020-09-10] MEDS ORDERED: PROPOFOL IV EMULSION 10 MG/ML 20 ML VIAL IV ONE (11:14)
[2020-09-10] MEDS ORDERED: LIDOCAINE HCL 2% 2 ML VIAL/AMP(20MG/ML) INFIL ONE (11:14)
[2020-09-10] MEDS ORDERED: ROCURONIUM BROMIDE 10 MG/ML 5 ML VIAL IV ONE (11:14)
[2020-09-10] MEDS ORDERED: fentaNYL citrate 100 MCG/2 ML VIAL ONE ×2 (11:15→14:48)
[2020-09-10] MEDS ORDERED: MIDAZOLAM HCL 1 MG/ML 2ML VIAL ONE (11:15)
[2020-09-10] MEDS ORDERED: MoRPHine SULFATE PF 1 MG/ML 10 ML AMP/VIAL ONE (11:23)
[2020-09-10] MEDS ORDERED: MEPERIDINE HCL 25 MG/ML CARP/VIAL IV PRN (11:42)
[2020-09-10] MEDS ORDERED: NALOXONE HCL 1 MG in SODIUM CHLORIDE 0.9% 1000ML 1,000 ML IV PRN (11:42)
[2020-09-10] MEDS ORDERED: ONDANSETRON INJ 2 MG/ML 2 ML VIAL IV PRN (11:42)
[2020-09-10] MEDS ORDERED: MoRPHine SULFATE PF 1 MG/ML 10 ML AMP/VIAL INT SPINAL ONE (11:42)
[2020-09-10] MEDS ORDERED: ePHEDrine sulfate 50 MG/ML AMP IV PRN (11:42)
[2020-09-10] MEDS ORDERED: METOCLOPRAMIDE HCL 10 MG in SODIUM CHLORIDE 0.9% 50 ML IV PRN (11:42)
[2020-09-10] MEDS ORDERED: PROMETHAZINE HCL IV PRN (11:42)
[2020-09-10] MEDS ORDERED: NALOXONE HCL 0.08 MG in SYRINGE 1.8 ML IV PRN (11:42)
[2020-09-10] MEDS ORDERED: LACTATED RINGER'S 500 ML IV PRN (11:42)
[2020-09-10] MEDS ORDERED: KETOROLAC 30 MG/ML VIAL IV PRN (11:42)
[2020-09-10] MEDS ORDERED: diphenhydrAMINE 50 MG/ML VIAL IV PRN (11:42)
[2020-09-10] MEDS ORDERED: HYDROmorphone INJ 0.5 MG/0.5 ML SYR IV PRN (11:42)
[2020-09-10] MEDS ORDERED: NALOXONE HCL 0.4 MG/1 ML VIAL/CARP IV PRN (11:42)
[2020-09-10] MEDS ORDERED: SODIUM CHLORIDE 0.9% IV PRN (11:42)
[2020-09-10] MEDS ORDERED: SODIUM CHLORIDE 0.9% 1000ML 1,000 ML IV SCH (11:45)
[2020-09-10] MEDS ORDERED: NO NARCOTICS OR SEDATIVES SCH (11:45)
[2020-09-10] MEDS ORDERED: DC INTRASPINAL MORPHINE SCH (11:45)
[2020-09-10] MEDS ORDERED: ePHEDrine sulfate 50 MG/ML SYR ONE (12:16)
[2020-09-10] MEDS ORDERED: GLYCOPYRROLATE 0.2 MG/ML VIAL ONE ×2 (12:16→13:26)
[2020-09-10] MEDS ORDERED: ONDANSETRON INJ 2 MG/ML 2 ML VIAL ONE (12:16)
[2020-09-10] MEDS ORDERED: NEOSTIGMINE METHYLSULFATE 5 MG/5 ML SYR ONE (12:16)
[2020-09-10] MEDS ORDERED: DEXAMETHASONE SOD INJ 4 MG/ML VIAL ONE (12:16)
[2020-09-10] MEDS ORDERED: HEPARIN SOD (PORCINE) 1000 UNIT/ML 10 ML VIAL ONE (12:17)
[2020-09-10] MEDS ORDERED: PROMETHAZINE HCL 12.5 MG in SODIUM CHLORIDE 0.9% 50 ML IV PRN (12:56)
--- NOTE | 2020-09-10 14:37 | Post Operative Brief Note ---
Immediate Post Op Note v1 Date of Surgery September 10, 2020 Pre & Post Diagnosis Operation Date: 09/10/20 11:15 Pre-Op Diagnosis: Chronic Pelvic Pain, Dysmenorrhea, Ovarian Cyst Post-Op Diagnosis: Chronic Pelvic Pain, Dysmenorrhea, Ovarian Cyst I identified the patient and participated in the time-out.: Yes Procedure Operation Date: 09/10/20 11:15 Actual Procedures p Total Abdominal Hysterectomy - Latrell Garcia MD Surgeon Latrell Garcia MD Umbrella Finisher none Estimated Blood Loss 300 Findings Consistent with Post-Op Diagnosis posttubal ligation Specimens uterus and cervix Drains Angulo Catheter (16F 5cc angulo placed after induction, remains intact to gravity drain on transport to PACU) and [place] Drain (Safety pin attached) Anesthesia Type General Complications none Disposition Accompanied Patient To Recovery: No Disposition: Recovery Room
[2020-09-10] MEDS ORDERED: ALBUTEROL HFA 8 GM INHALER INH PRN (14:43)
[2020-09-10] MEDS ORDERED: fentaNYL citrate 100 MCG/2 ML VIAL IV PRN (14:56)
--- NOTE | 2020-09-10 15:12 | Operative Report (OR) ---
DATE OF OPERATION: 09/10/2020 PROCEDURE: Total abdominal hysterectomy, suspension of vaginal cuff. INDICATIONS FOR SURGERY: Severe pelvic pain. PREOPERATIVE DIAGNOSIS: Adenomyosis. POSTOPERATIVE DIAGNOSIS: Adenomyosis. PATHOLOGY: Pending. SURGEON: Tosha Garcia MD. ESTIMATED BLOOD LOSS: 300 mL. ANESTHESIA: General. OPERATIVE FINDINGS AND PROCEDURE: The patient was brought to the OR table, correctly identified by armband and conversation. General anesthesia was administered. Lower abdomen was painted with an alcohol based sterilizing solution. The vagina was prepped with a sterilizing solution. A Hernandez catheter was inserted into the bladder and compression stockings were applied. The lower abdomen was draped in the usual sterile fashion exposing an old Pfannenstiel incision. Incision was made through the old incision, carried down to the anterior fascia by sharp dissection. Hemostasis was secured by electrocauterization. Fascia was incised transversely from the underlying muscle by blunt and sharp dissection. Recti muscles were in the midline, exposing peritoneum and peritoneum was entered. There were some adhesions to the anterior abdominal wall from the previous 2 C-sections. These were bluntly taken down. After entering the abdomen, an O'Alexander-O'Grant self-retraining retractor was placed into the incision. Several moist laparotomy packs were used to retract the intestines and provide adequate exposure of pelvic cavity. What could be seen at this time was a top normal size uterus, status post tubal ligation. Uterus was grasped with double tooth tenaculum. Round ligaments on each side were clamped proximally and distally and suture ligated with transfixion suture of chromic catgut cut. Incision was made above the vesicouterine fold. Bladder was undermined and pushed out of the operative field. Posterior leaf of the broad ligament was entered by punching bluntly through and then ligating the ovarian ligament proximally and distally, then cutting it and doubly ligating it distally along with a tag. Following this, the bladder was advanced out of the operative field. The uterine vessels were skeletonized on either side, doubly clamped with curved Arsenio, cut with a knife and then doubly ligated with a chromic gut suture and the stumps were cauterized and the cardinal ligaments were cut by clamping on the cervix, sliding off the cervix, then cutting with a stump and then using a chromic gut suture to tie off the cardinal ligaments. This was done in 2 steps because of the length of the cardinal ligaments. Then, the vagina was then entered with electrocautery by shelling out the cervix and entering the vagina first on the left side and then taken around the fornix and removing the surgical specimen consisting of uterus and cervix. There was a little bit more than average bleed on the right side because of some large vessels in the broad ligament. After this, the cuff was clamped on each end with a straight Arsenio and then the middle with curved clamps. The cardinal ligaments were suture ligated to the stumps of the cuff on either side on the angles and then the vagina was approximated front to back with a [id number] suture, which was anchored in the cuff on the edge on either side and then stitched to the middle and back and then tied. The mid portion of the vagina was whipstitched open with a continuous interlocking suture of chromic gut suture. There was 1 interrupted suture of chromic was used to close the vaginal cuff on the patient's left side. A [place] drain with a safety pin was placed into the vaginal cuff. Hemostasis at this time was excellent. The round ligaments were brought down and tied to the angles of the cuff for suspension of the vaginal cuff. Then, the peritoneal edges were approximated from the right side to the middle and then from the left side to the middle, and this anchored the ovaries up along the side of the pelvic wall. Then the 2 sutures were tied to each other. We checked to see there was good mobility of the Salty drain. We washed the pelvis several times with a saline solution with heparin in it. Hemostasis was excellent. We removed all the packs, checked for bleeding, did a careful anatomical approximation of the anterior abdominal wall. Peritoneum was closed with a mattress suture of chromic catgut. Recti muscles were approximated with interrupted [id number] suture of chromic catgut. The fascia was closed with continuous interlocking suture of Vicryl on each side, tied in the midline. Subcutaneous was approximated with a running plain and skin edges were approximated with staple clips. Estimated blood loss was 300 mL. The procedure went well. Urine was clear at the end. The patient tolerated the procedure well and left the OR in good condition. I attest to the content of the Intraoperative Record and any orders documented therein. Any exception s are noted below.
--- NOTE | 2020-09-10 15:19 | Anesthesiology Progress Note ---
Date of Service September 10, 2020 Anesthesia Post Procedure Vital Signs Vital Signs: Temp Pulse Pulse Resp BP Pulse Ox 09/10/20 15:05 62 15 132/77 99 09/10/20 14:55 59 L 19 118/73 100 09/10/20 14:45 64 12 119/81 100 09/10/20 14:39 36.6 C 74 21 127/79 100 09/10/20 10:13 37.1 C 67 18 122/88 97 Pain Intensity Abdomen: Pain Intensity: 3 Transfer of Care Handoff Completed per policy Notes Mental Status: alert / awake / arousable and participated in evaluation Patient Amnestic to Procedure: Yes Nausea / Vomiting: adequately controlled Pain: adequately controlled Airway Patency, RR, SpO2: stable & adequate BP & HR: stable & adequate Hydration State: stable & adequate Neuraxial Anesthesia: was administered and sensory block is resolving Anesthetic Complications: no major complications apparent
[2020-09-10] MEDS: MoRPHine SULFATE 2 MG/ML CARP IV PRN ×3 (16:20→23:25)
[2020-09-10] MEDS: D5W AND LACTATED RINGERS 1,000 ML IV SCH (16:49)
[2020-09-10] MEDS ORDERED: SODIUM CHLORIDE 0.9% 1000ML 500 ML IV ONE (18:43)
[2020-09-10] MEDS: METOPROLOL SUCC 50MG EXT REL TAB PO SCH (20:03)
[2020-09-10] MEDS: NICOTINE 21 MG/24 HR TDSY TD SCH (20:36)
[2020-09-10] MEDS: busPIRone 7.5 MG TAB PO SCH (21:05)
[2020-09-11] MEDS: D5W AND LACTATED RINGERS 1,000 ML IV SCH (00:22)
[2020-09-11] MEDS: MoRPHine SULFATE 2 MG/ML CARP IV PRN (04:43)
[2020-09-11] MEDS ORDERED: ONDANSETRON INJ 2 MG/ML 2 ML VIAL IV PRN (05:43)
[2020-09-11] MEDS ORDERED: KETOROLAC 30 MG/ML VIAL IV PRN (05:43)
[2020-09-11] MEDS ORDERED: PROMETHAZINE HCL 25 MG in SODIUM CHLORIDE 0.9% 50 ML IV PRN (05:43)
[2020-09-11] MEDS ORDERED: MEPERIDINE HCL 50 MG/ML CARP IV PRN (05:43)
[2020-09-11 06:16] LABS: Basophils # (auto) 0.01 K/uL (0-0.2); Basophils % (auto) 0.1 %; Hemoglobin 10.7 g/dL (12.0-16.0); Immature Granulocytes # (auto) 0.02 K/uL (0.00-0.02); Immature Granulocytes % (auto) 0.2 %; Lymphocytes % (auto) 13.5 %; Mean Corpuscular Hemoglobin 30.9 pg (25-34); Mean Corpuscular Hgb Conc 32.4 g/dL (32-36); Mean Corpuscular Volume 95.4 fL (80-100); Mean Platelet Volume 11.9 fL (7.4-10.4); Monocytes # (auto) 0.95 K/uL (0.11-0.59); Monocytes % (auto) 7.5 %; Neutrophils # (auto) 9.95 K/uL (1.4-6.5); Neutrophils % (auto) 78.7 %; Platelet Count 220 K/uL (130-400); RDW Coefficient of Variation 13.4 % (11.5-14.5); RDW Standard Deviation 46.8 fL (36.4-46.3); Red Blood Count 3.46 M/uL (4.2-5.4); White Blood Count 12.63 K/uL (4.8-10.8)
--- NOTE | 2020-09-11 08:37 | Obstetrical Progress Note ---
Date of Service September 11, 2020 Assessment & Plan Admission and Anticipated Discharge Date Admission Date: September 10, 2020 Physical Exam Physical Exam: abdomen soft and non tender bowel sounds are present no calf tenderness bandage removed incision is clean and dry vaginal bleeding scant hgb 10.7 Results & Data ([facility]) Vital Signs (Past 12 Hours) Vital Signs Temp Pulse Resp BP Pulse Ox 09/11/20 04:40 36.9 C 61 18 142/82 H 99 09/11/20 04:00 18 98 09/11/20 03:00 16 97 09/11/20 02:10 16 97 09/11/20 01:00 16 97 09/11/20 00:15 16 96 09/10/20 23:37 16 97 09/10/20 23:20 37.0 C 71 16 102/67 97 09/10/20 22:00 16 97
[2020-09-11] MEDS: busPIRone 7.5 MG TAB PO SCH ×2 (09:18→20:32)
[2020-09-11] MEDS: FLUoxetine HCL 20 MG CAP PO SCH (09:19)
[2020-09-11] MEDS: NICOTINE 21 MG/24 HR TDSY TD SCH (09:19)
[2020-09-11] MEDS: oxyCODONE/ACETAMINOPHEN 5mg/325mg TAB PO PRN ×4 (11:11→22:55)
[2020-09-11] MEDS: IBUPROFEN 600 MG TAB PO PRN ×3 (14:42→22:55)
[2020-09-11] MEDS: SIMETHICONE 80 MG CHEW PO PRN ×2 (15:34→20:36)
[2020-09-11] MEDS ORDERED: MELATONIN 3 MG TAB PO PRN (19:43)
[2020-09-11] MEDS: METOPROLOL SUCC 50MG EXT REL TAB PO SCH (20:34)
[2020-09-12] MEDS: D5W AND LACTATED RINGERS 1,000 ML IV SCH (00:03)
[2020-09-12] MEDS: oxyCODONE/ACETAMINOPHEN 5mg/325mg TAB PO PRN ×2 (03:12→08:27)
[2020-09-12] MEDS: SIMETHICONE 80 MG CHEW PO PRN (03:14)
--- NOTE | 2020-09-12 05:43 | Obstetrical Progress Note ---
Date of Service September 12, 2020 Assessment & Plan Admission and Anticipated Discharge Date Admission Date: September 10, 2020 Physical Exam Physical Exam: abdomen soft and non tender incision is clean and dry passing flatus no calf tenderness ambulating well isiah drain with safety pin removed from the vagina vaginal bleeding scant hgb 10.7 Results & Data ([facility]) Vital Signs (Past 12 Hours) Vital Signs Temp Pulse Resp BP Pulse Ox 09/11/20 23:47 37 C 67 16 137/71 96 09/11/20 20:35 57 L 113/70 09/11/20 19:15 36.8 C 64 16 143/84 H 99
[2020-09-12 06:32] LABS: Basophils # (auto) 0.02 K/uL (0-0.2); Basophils % (auto) 0.2 %; Eosinophils # (auto) 0.11 K/uL (0-0.5); Eosinophils % (auto) 1.2 %; Hemoglobin 11.2 g/dL (12.0-16.0); Immature Granulocytes # (auto) 0.01 K/uL (0.00-0.02); Immature Granulocytes % (auto) 0.1 %; Lymphocytes # (auto) 4.12 K/uL (1.2-3.4); Lymphocytes % (auto) 44.3 %; Mean Corpuscular Hemoglobin 31.3 pg (25-34); Mean Corpuscular Hgb Conc 32.9 g/dL (32-36); Mean Platelet Volume 11.9 fL (7.4-10.4); Monocytes # (auto) 0.91 K/uL (0.11-0.59); Monocytes % (auto) 9.8 %; Neutrophils # (auto) 4.14 K/uL (1.4-6.5); Neutrophils % (auto) 44.4 %; Platelet Count 205 K/uL (130-400); RDW Coefficient of Variation 13.4 % (11.5-14.5); RDW Standard Deviation 47.1 fL (36.4-46.3); Red Blood Count 3.58 M/uL (4.2-5.4); White Blood Count 9.31 K/uL (4.8-10.8)
[2020-09-12] MEDS: NICOTINE 21 MG/24 HR TDSY TD SCH (08:20)
[2020-09-12] MEDS: busPIRone 7.5 MG TAB PO SCH (08:21)
[2020-09-12] MEDS: FLUoxetine HCL 20 MG CAP PO SCH (08:21)
[2020-09-12] MEDS: IBUPROFEN 600 MG TAB PO PRN (08:27)
--- NOTE | 2020-09-12 08:49 | Discharge Summary (DS) ---
She is 3, para 2. She was admitted for total abdominal hysterectomy with suspension of vaginal cuff for symptoms of severe dysmenorrhea and pelvic pain and prolonged bleeding. This was causing her to not be able to work. She was unable to control the pain with nonnarcotic pain relievers. On the day of admission, she was taken to the OR, she was given prophylactic antibiotics and she underwent total abdominal hysterectomy with suspension of the vaginal cuff and preservation of both ovaries. Preoperative hemoglobin was 14.0. Postoperatively, hemoglobin fell to 10.7. Postoperative course was uneventful. She remained afebrile throughout her postoperative course. Her bowel sounds returned within 24 hours. At the time of discharge, she was ambulating well, eating well. She had no calf tenderness. Salty drain with a safety pin was removed from the vaginal cuff and she was discharged to be followed in the home and office, to call the office for removal of shannon and to call if she had temperature over 100 or any heavy bleeding.
== END 2020-09-12 11:05 | disposition home or self-care (01) | DRG 743 ==
LOC: ASU 09:12 → 4N 14:39 → 3W 09-11 23:26